=== PATIENT | male | born 1965 | race Caucasian/White ===

== ENCOUNTER 2020-01-17 17:52 | Emergency (ER) | payer OTHER, SELFPAY ==
--- NOTE | 2020-01-17 17:50 | ECG_ITS ---
APPROVED REPORT Exam: Resting ECG HR:75 bpm ECG Measurements Heart Rate 75 AXES FL 200 P 53 QRSd 86 QRS 14 QT 392 T 45 QTc 437 <Conclusion> Normal sinus rhythm Normal ECG Electronically signed by : Ramo Garcia, 01/19/2020 06:34:42
[2020-01-17 17:53] VITALS: BP 157/94; PULSE 77; RESP 22; TEMP 36.7; O2SAT 97; BMI 34.5
--- NOTE | 2020-01-17 18:00 | XR_ITS ---
PROCEDURE: XR CHEST PORTABLE CLINICAL HISTORY: chest pain Chest pressure and shortness of breath COMPARISON: CT ANGIO CHEST from 01/17/2020 FINDINGS: The cardiomediastinal silhouette and pulmonary vascularity are within normal limits. There is increased density in the right lung base which may be related to an area of atelectasis or infiltrate versus pericardial fat pad. The remaining lungs are clear. Sclerotic foci of the right humerus and scapula which may be due to bone islands. IMPRESSION: Possible right basilar infiltrate versus overlying fat pad. Dictated by: Mj Alex MD 01/18/2020 06:03 Electronically signed by Mj Alex MD in [facility] 01/18/2020 06:03
--- NOTE | 2020-01-17 18:03 | HMH.EDGENADL ---
ED Disposition Clinical Impression: Shortness of breath Disposition: Home, Self-Care Condition on Discharge: Good Instructions: DI for Shortness of Breath Additional Instructions: Follow-up with your primary care doctor, call tomorrow morning Additional instructions for SHORTNESS OF BREATH: See your physician as soon as possible for further evaluation. Return immediately if worsening shortness of breath or if vomiting, chest pain, fever, coughing of blood, or passing out. Referrals: Radames Mcgarry [Primary Care Provider] - - Critical Care Critical Care Time: No Attestation: On , the high probability of a clinically significant, sudden or life threatening deterioration of the following system(s) required my full and direct attention, intervention and personal management. The time I documented below is in addition to time spent performing reported procedures but includes the following listed in this critical care notation. Medical Decision Making - Ellis Inquiry Pt receiving controlled substance: No Vital Signs: 01/17/20 17:53 01/17/20 18:20 Temperature 98.1 F Temperature Source Oral Pulse Rate [Left Radial] 77 75 Respiratory Rate 22 Blood Pressure [Right Radial Artery] 157/94 H 149/83 H Blood Pressure Mean [Right Radial Artery] 115 105 Blood Pressure Source [Right Radial Artery] Automatic Cuff Blood Pressure Position [Right Radial Artery] Sitting Sitting 02 Sat by Pulse Oximetry 97 94 L Oxygen Delivery Method Room Air - Lab Data Lab Results 01/17/20 17:55: WBC 8.0, RBC 5.49, Hgb 14.7, Hct 44.5, MCV 81.2, MCH 26.8 L, MCHC 33.1, RDW 13.9, Plt Count 266, MPV 8.6, Neut % (Auto) 45.7, Lymph % (Auto) 47.1, [place] % (Auto) 4.2, Eos % (Auto) 2.3, Baso % (Auto) 0.7, Neut # (Auto) 3.6, Lymph # (Auto) 3.8, [place] # (Auto) 0.3, Eos # (Auto) 0.2, Baso # (Auto) 0.1 01/17/20 17:55: Sodium 137, Potassium 3.9, Chloride 105, Carbon Dioxide 25, Anion Gap 10.9, BUN 12, Creatinine 1.10, Estimated Creat Clear 104, Estimated GFR 69, Est GFR ( Amer) 84, Glucose 123 H, Calcium 9.3, Total Bilirubin 0.5, Direct Bilirubin 0.0, Conjugated Bilirubin 0.0, Indirect Bilirubin 0.5, Unconjugated Bilirubin 0.5, AST 32, ALT 36, Alkaline Phosphatase 58, Troponin I < 0.01, Total Protein 6.8, Albumin 4.3 01/17/20 17:55: D-Dimer 104 01/17/20 17:55: NT-Pro-B Natriuret Pep 25.3 01/17/20 19:32: Urine Color Yellow, Urine Appearance Clear, Urine pH 7.0, Ur Specific [place] 1.010, Urine Protein Negative, Urine Glucose (UA) Negative, Urine Ketones Negative, Urine Blood Negative, Urine Nitrate Negative, Urine Bilirubin Negative, Urine Urobilinogen 0.2, Ur Leukocyte Esterase Negative Result diagrams: 01/17/20 17:55 01/17/20 17:55 Orders (Tests/Meds): ED MEDICATIONS Discontinued Medications Generic Name Dose Route Start Last Admin Trade Name Freq PRN Reason Stop Dose Admin Aspirin 324 mg 01/17/20 18:01 01/17/20 18:14 Aspirin 81mg Chewable Tablet PO 01/17/20 18:02 324 mg ONCE ONE Administration Ioversol 70 ml 01/17/20 19:52 01/17/20 19:54 Rad-Optiray 350 100ml Vial IV 01/17/20 19:53 70 ml ONCE ONE Administration Protocol Sodium Chloride 10 ml 01/17/20 19:52 01/17/20 19:54 Rad-Saline Flush 10ml Syringe IV 01/17/20 19:53 10 ml ONCE ONE Administration Sodium Chloride 50 ml 01/17/20 19:52 01/17/20 19:54 Rad-Ns 50ml Vial IV 01/17/20 19:53 50 ml ONCE ONE Administration ORDERS Category Date Time Status CTA Chest [CT angio chest] Stat Cat Scan 01/17/20 18:49 Taken XR chest portable Stat Exams 01/17/20 18:00 Taken Troponin I Q3H Lab 01/17/20 21:00 Ordered Troponin I Q3H Lab 01/18/20 00:00 Ordered UA [Urinalysis and Microscopic] Stat Lab 01/17/20 19:32 Results - Radiology Data #1 Image(s): Chest Image Reviewed: Yes I reviewed the patient's radiology image Haziness at the right cardiophrenic angle, questionable fat pad. No effusions seen. Heart size daniel
[2020-01-17 18:08] LABS: Basophils # 0.1 K/mm3 (0-0.2); Basophils % 0.7 % (0.1-2.0); Eosinophils # 0.2 K/mm3 (0.0-0.4); Eosinophils % 2.3 % (0.1-12.0); Hematocrit 44.5 % (42.0-52.0); Hemoglobin 14.7 g/dL (14.1-18.0); Lymphocytes # 3.8 K/mm3 (0.7-4.5); Lymphocytes % 47.1 % (10-50); Mean Corpuscular HGB Conc 33.1 g/dL (31.8-35.4); Mean Corpuscular Hemoglobin 26.8 pg (27.0-31.2); Mean Corpuscular Volume 81.2 fl (80-94); Mean Platelet Volume 8.6 fl (7.4-10.4); Monocytes # 0.3 K/mm3 (0.1-1.0); Monocytes % 4.2 % (1.7-9.3); Neutrophils # 3.6 K/mm3 (1.8-7.8); Neutrophils % 45.7 % (37.0-80.0); Platelet Count 266 K/mm3 (142-424); Red Blood Count 5.49 M/mm3 (4.60-6.20); Red Cell Distribution Width 13.9 % (11.5-17.5)
[2020-01-17 18:14] LABS: Chloride 105 mmol/L (98-107); Potassium 3.9 mmoL/L (3.5-5.1); Sodium 137 mmol/L (136-145)
[2020-01-17 18:17] LABS: Alanine Aminotransferase 36 U/L (12-78); Albumin Level 4.3 g/dl (3.5-5.0); Alkaline Phosphatase 58 U/L (38-126); Anion Gap 10.9 mEq/L (5-15); Aspartate Amino Transferase 32 U/L (17-59); Bilirubin,Indirect 0.5 mg/dL (0.0-0.9); Bilirubin,Total 0.5 mg/dl (0.2-1.3); Bilirubin,Unconjugated 0.5 mg/dL (0.0-1.1); Blood Urea Nitrogen 12 mg/dl (9-20); Calcium 9.3 mg/dl (8.4-10.2); Carbon Dioxide 25 mmol/L (22.0-30.0); Creatinine Clearance Estimated 104 mL/min (50-200); Estimated Glomerular Filt Rate 69 ml/min (>60); GFR (African American) 84 ML/MIN (>60); Glucose 123 mg/dl (74-100); Total Protein,Serum 6.8 g/dl (6.3-8.2)
[2020-01-17 18:20] VITALS: BP 149/83; PULSE 75; O2SAT 94
--- NOTE | 2020-01-17 18:30 | PC.NURSE ---
Rad at bedside
[2020-01-17 18:32] LABS: Troponin I < 0.01 ng/ml (0.00-0.034)
--- NOTE | 2020-01-17 18:49 | CT_ITS ---
PROCEDURE: CT ANGIO CHEST CLINCIAL INDICATION: soa Chest pressure, shortness of breath COMPARISON: No exams were available for comparison TECHNIQUE: IV Contrast: 70ML OPTIRAY 350 Axial images obtained with sagittal and coronal reformats. All CT scans at the facility use one or more dose reduction, viz: automated exposure control, ma/kV adjustment per patient size (including targeted exams where dose is matched to indication, i.e. head), or iterative reconstruction technique. FINDINGS: HEART AND MEDIASTINAL STRUCTURES: No evidence of pulmonary embolus, aortic aneurysm, or dissection LUNGS AND PLEURAL SPACES: Atelectatic changes are present in the lower lung zones BONY STRUCTURES: Degenerative changes thoracic spine UPPER ABDOMEN: Unremarkable. ADDITIONAL FINDINGS: No other significant abnormalities. IMPRESSION: No evidence pulmonary embolus Mild atelectatic changes Dictated by: Mj Alex MD 01/18/2020 08:58 Electronically signed by Mj Alex MD in [facility] 01/18/2020 08:58
[2020-01-17 18:54] LABS: NT Pro Brain Natriuretic Pep. 25.3 pg/mL (0-125)
[2020-01-17 19:11] LABS: D-Dimer 104 ng/mL (0-400)
--- NOTE | 2020-01-17 19:27 | PC.NURSE ---
patient up to bathroom
[2020-01-17 19:37] LABS: Microscopic, Urine URINE MICROSCOPIC (MICROSCOPIC)
[2020-01-17 19:46] LABS: Appearance,Urine CLEAR (Clear); Bilirubin,Urine Negative (Negative); Blood, Urine Negative (Negative); Color,Urine YELLOW (Yellow); Glucose,Urine (UA) Negative (Negative); Ketones,Urine Negative (Negative); Leukocyte Esterase,Urine Negative (Negative); Nitrate,Urine Negative (Negative); Protein,Urine Negative (Negative); Urobilinogen,Urine 0.2 EU/dl (0.2)
[2020-01-17 20:19] LABS: Bacteria,Urine Trace /lpf; Squamous Epithelial Cell,Urine Occasional #/hpf (0-5); WBC,Urine Occasional #/hpf (0-3)
[2020-01-17 21:02] VITALS: BP 135/70; PULSE 78; RESP 19; TEMP 36.7; O2SAT 98
== END 2020-01-17 21:05 | disposition home or self-care (01) ==
PROVIDERS: Emergency Provider Emergency Medicine; PCP Family Medicine
DX: R06.02 Shortness of breath (principal); R07.9 Chest pain, unspecified; J44.9 Chronic obstructive pulmonary disease, unspecified; F17.210 Nicotine dependence, cigarettes, uncomplicated
CPT/HCPCS: 71045; 71275; 80048; 80076; 81001; 83880; 84484; 85025; 85378; 93005; 96365; 99283; 99284; Q9967

== ENCOUNTER → 2020-02-16 06:06 | Outpatient (CLI) | payer OTHER, SELFPAY ==
--- NOTE | 2020-02-16 06:07 | CA_ITS ---
APPROVED REPORT EXAM: Comprehensive 2D, Doppler, and color-flow Echocardiogram Frame Builder: Letitia Rosas RDCS Ht: 5 ft 6 in Wt: 211lbs BSA: 2.05 BP: 148/89 mmHg Indications: CP SOA CAD 2D Dimensions LVOT 1.89 cm (M/F) 1.5-2.5 M-Mode Dimensions RVDd 2.94 cm (0.9-2.6) LVDd 5.24 cm (3.5-5.7) LVDs 3.80 cm (3.5-5.7) IVSd 1.08 cm (0.6-1.1) PWd 0.93 cm (0.6-1.1) EF (Teich) 53.00% FS 27.50% EDV (Teich) 131.80 mL ESV (Teich) 62.00 mL LV Diastology E/A Ratio 0.74 Mitral Valve MV A Velocity 65.00 (40-130 cm/s) Left Ventricle Left atrium is qualitatively mildly enlarged, left ventricle is normal size, left ventricle wall thickness is upper limit of the normal, there is preserved left ventricular systolic function, visually estimated ejection fraction 55% with no regional wall motion abnormality, grade 1 diastolic dysfunction seen without tissue Doppler evidence of raise left atrial pressure. Right Ventricle Right atrium and right ventricle are mildly enlarged with normal contractility. Aortic Valve Aortic valve is minimally thickened and fibrosed, there is no aortic stenosis or aortic insufficiency. Mitral Valve Mitral valve is grossly normal, there is mild mitral regurgitation. Tricuspid Valve Tricuspid valve is grossly normal, there is mild tricuspid regurgitation, tricuspid regurgitation jet velocity is inadequate for calculation of the right ventricular systolic pressure. Pulmonic Valve Pulmonic valve is poorly visualized. Great Vessels Aortic root is normal size. Pericardium No significant pericardial effusion noted. Conclusion 1. Mild biatrial enlargement, normal left ventricular size, visually estimated ejection fraction 55% with no regional wall motion abnormality, grade 1 diastolic dysfunction seen without tissue Doppler evidence of raise left atrial pressure. 2. Mildly enlarged right ventricle with normal contractility. 3. Mild mitral and tricuspid regurgitation. 4. No significant pericardial effusion noted. Electronically signed by : Tristen Bennett, 02/16/2020 10:02:38
--- NOTE | 2020-02-16 06:07 | NM_ITS ---
APPROVED REPORT Exam: Nuclear Stress Test Indication: C.P., SOB, HTN, TOB USE, FM HX., PALPITATIONS, FATIGUE Patient Location: Outpatient Stress Tech: Liliana Mcbride [place] Tech:Gabby Acuna ROBERTMauricio RT(R)(N) Ht: 5 ft 7 in Wt: 210 lbs HR: 65 bpm BP: 144/87 mmHg BSA: 2.07 m2 BMI: 32.8 History: C.P., SOB, HTN, TOB USE, FM HX., PALPITATIONS, FATIGUE Procedure: Patient received a 0.4 mg of intravenous Lexiscan, resting heart rate 65 bpm, resting blood pressure 144/87 mmHg, with Lexiscan maximum heart rate achived was 96 bpm which is Less than 85 % of the maximum predicted heart rate and blood pressure was 140/77 mmHg. With Lexiscan, patient denied any complaint of chest pain. Electrocardiogram Resting electrocardiogram showed sinus rhythm, with Lexiscan there is less than 1.[address] segment depression noted from baseline EKG. The EKG portion of the Lexiscan Myoview is nondiagnostic. Cardiac Stress and Resting SPECT Images: Cardiac Stress and Resting SPECT images were obtained using technetium 99m Myoview 31.9 mCi stress and 10.90 mCi at rest. Gated SPECT with analysis of segmental wall motion and calculation of the ejection fraction also done. Cardiac stress and resting SPECT images show uniform myocardial activity without segmental perfusion abnormality, computer derived ejection fraction is 63% with no regional wall motion abnormality, right ventricle is normal size and contractility. Conclusion: 1. The EKG portion of the Lexiscan Myoview is nondiagnostic. 2. No scintigraphic evidence of reversible ischemia seen, computer derived ejection fraction is 63% with no regional wall motion abnormality, right ventricle is normal size and contractility. 3. Normal Lexiscan Myoview study. Electronically signed by : Tristen Bennett, 02/16/2020 10:14:11
--- NOTE | 2020-02-16 06:07 | CA_ITS ---
APPROVED REPORT Exam: Pharmacologic Technologist: Marysol Collins, Ht: 5 ft 7 in Wt: 210 lbs BSA: 2.07 m2 HR: 65 bpm BP: 144/87 mmHg Medical History Medical History: HTN, Smoking Medications: Lisinopril,,,,, Omeprazole,,,,, Spiriva,,,,, Asa,,,,, Albuterol,,,,, MeLOXICAM,,,,, WELLBUTRIN,,,,, Cardiac Risk Factors: HTN, FHX of CAD, Smoking Stress Test Details Test: LEXISCAN HR Resting HR: 64 bpm Max Heart Rate (APMHR): 165 bpm Max HR Achieved: 98 bpm Target HR (85% APMHR): 140 bpm % of APMHR: 59 Recovery HR: 78 bpm BP Resting BP: 144.0/87.0 mmHg Max BP: 144.0/87.0 mmHg Recovery BP: 135.0/80.0 mmHg ECG Clinical Exercise duration: 04:42 min Highest Stage Achieved: Exercise capacity: 1.0 METs Stress ECG Conclusion With Lexiscan there is less than 1.[address] segment depression noted from the baseline EKG. Conclusions: The EKG portion of the Lexiscan Myoview is nondiagnostic. Electronically signed by : Tristen Bennett, 02/16/2020 10:05:39
--- NOTE | 2020-02-16 08:53 | HMH.ITSHM ---
Current Home Medications as stated by this patient Tani Alvarez or licensing representative. [] lisinopril omeprazole asa albuterol spiriva wellbutrin meloxicam
== END ==
PROVIDERS: PCP Family Medicine; Visit Provider Urology
DX: R07.9 Chest pain, unspecified (principal); R06.00 Dyspnea, unspecified; I25.10 Atherosclerotic heart disease of native coronary artery without angina pectoris
CPT/HCPCS: 78452; 93017; 93306; A9502; J2785

== ENCOUNTER 2020-02-27 08:31 | Day surgery (SDC) | payer OTHER, SELFPAY ==
[2020-02-27] VITALS (18 sets, daily range): BP systolic 107–167; BP diastolic 64–96; PULSE 56–70; RESP 16–20; TEMP 36.6; O2SAT 94–99; BMI 33.7
--- NOTE | 2020-02-27 09:00 | IR_ITS ---
APPROVED REPORT Patient Location: Outpatient Machine Stuffer: WILL Henderson RT (R) PROCEDURES Left heart catheterization Left ventriculogram Selective coronary angiogram INDICATION Abnormal Myoview, Angina pectoris Informed consent was obtained prior to the procedure. COMPLICATIONS None Estimated Blood Loss: Less than 10 ml TECHNIQUE One percent lidocaine used to anesthetize the right anterior aspect of the wrist. The right radial artery was accessed via the Seldinger technique. A 6 [place] sheath was placed in the right radial artery. 2.5 mg of verapamil, 800 mcg of nitroglycerin, 1mg Lidocaine and 5000 U Heparin were given through the arterial sheath. The trap catheter was also used to perform left heart catheterization, left ventriculogram and selective coronary angiogram. At the end of the procedure the sheath was removed good hemostasis was achieved using Traclet band, patient was transferred to the postop holding area in stable condition. ANGIOGRAPHIC RESULTS The left main artery Normal The left anterior descending artery Normal The circumflex artery Normal The right coronary artery Dominant normal The MARTINEZ ventriculogram reveals Normal 65% The left ventricular end-diastolic pressure 10 mmHg IMPRESSION Normal coronary arteries Normal ejection fraction Normal left ventricular end-diastolic pressure PLAN 1. Medical management Electronically signed by : Adam Ny, 02/27/2020 13:20:08
[2020-02-27 09:02] LABS: Basophils # 0.1 K/mm3 (0-0.2); Basophils % 1.2 % (0.1-2.0); Eosinophils # 0.2 K/mm3 (0.0-0.4); Hematocrit 48.2 % (42.0-52.0); Hemoglobin 16.5 g/dL (14.1-18.0); Lymphocytes # 3.7 K/mm3 (0.7-4.5); Lymphocytes % 45.9 % (10-50); Mean Corpuscular HGB Conc 34.2 g/dL (31.8-35.4); Mean Corpuscular Hemoglobin 28.7 pg (27.0-31.2); Mean Corpuscular Volume 84.1 fl (80-94); Mean Platelet Volume 8.8 fl (7.4-10.4); Monocytes # 0.4 K/mm3 (0.1-1.0); Monocytes % 4.4 % (1.7-9.3); Neutrophils # 3.7 K/mm3 (1.8-7.8); Neutrophils % 45.6 % (37.0-80.0); Platelet Count 246 K/mm3 (142-424); Red Blood Count 5.73 M/mm3 (4.60-6.20); Red Cell Distribution Width 13.6 % (11.5-17.5); White Blood Count 8.1 K/mm3 (4.8-10.8)
[2020-02-27 09:07] LABS: Chloride 105 mmol/L (98-107); Potassium 4.2 mmoL/L (3.5-5.1); Sodium 140 mmol/L (136-145)
[2020-02-27 09:10] LABS: Anion Gap 15.2 mEq/L (5-15); Blood Urea Nitrogen 9 mg/dl (9-20); Calcium 9.4 mg/dl (8.4-10.2); Carbon Dioxide 24 mmol/L (22.0-30.0); Creatinine Clearance Estimated 112 mL/min (50-200); Estimated Glomerular Filt Rate 78 ml/min (>60); GFR (African American) 94 ML/MIN (>60); Glucose 111 mg/dl (74-100)
== END 2020-02-27 15:43 | disposition home or self-care (01) ==
LOC: CATHLAB 08:34
PROVIDERS: PCP Family Medicine; Visit Provider Internal Medicine
DX: I25.118 Atherosclerotic heart disease of native coronary artery with other forms of angina pectoris (principal); J44.9 Chronic obstructive pulmonary disease, unspecified; I10 Essential (primary) hypertension; R94.31 Abnormal electrocardiogram [ECG] [EKG]; E78.5 Hyperlipidemia, unspecified; Z79.82 Long term (current) use of aspirin; Z79.51 Long term (current) use of inhaled steroids; Z79.899 Other long term (current) drug therapy; Z88.8 Allergy status to other drugs, medicaments and biological substances
CPT/HCPCS: 80048; 85025; 93458; 99152; C1725; C1769; J1644; Q9967

== ENCOUNTER 2020-04-16 11:34 | Inpatient (IN) | payer OTHER, SELFPAY ==
[2020-04-16] VITALS (8 sets, daily range): BP systolic 128–157; BP diastolic 68–99; PULSE 60–96; RESP 14–18; TEMP 36.4–38.4; O2SAT 94–100; BMI 33.5; BMI 34.0
--- NOTE | 2020-04-16 12:00 | CT_ITS ---
PROCEDURE: CT ABDOMEN PELVIS W CON CLINICAL INDICATION: abd pain Abdominal pain, low-grade fever, blood in stool COMPARISON: 03/17/2019 TECHNIQUE: IV Contrast: 75ML OPTIRAY 350 Oral Contrast None Axial images obtained with sagittal and coronal reformats. All CT scans at the facility use one or more dose reduction, viz: automated exposure control, ma/kV adjustment per patient size (including targeted exams where dose is matched to indication, i.e. head), or iterative reconstruction technique. FINDINGS: There is diffuse fatty liver infiltration. There has been a prior cholecystectomy. The spleen, adrenal glands, pancreas, and kidneys have an unremarkable appearance other than a small right renal cyst at approximately 13 mm. No renal or ureteral calculi. No hydronephrosis No intestinal obstruction or free air. The bowel gas pattern is nonspecific with fluid-filled loops of small and large bowel which are nondistended. There is mild thickening of the descending colon with some minimal stranding of the pericolic fat also with some mild thickening of the sigmoid colon. There are scattered colonic diverticula but no evidence of diverticulitis. There has been a prior appendectomy. There is a tiny umbilical hernia which contains fat. There are mild degenerative changes in the spine IMPRESSION: 1. There is thickening of the descending and sigmoid colon with minimal stranding of the pericolic fat consistent with colitis. There is diverticulosis but no evidence of diverticulitis 2. There are some nondistended small bowel loops with a few air-fluid levels which may be seen with enteritis. 3. Fatty liver Dictated b Mj Alex MD 04/16/2020 14:08 Mj Alex MD in [facility] 04/16/2020 14:08
--- NOTE | 2020-04-16 12:00 | CT_ITS ---
PROCEDURE: CT CHEST W CON CLINCAL INDICATION: abd pain COMPARISON: CT CT ANGIO CHEST from 01/17/[address] ABDOMEN PELVIS W CON from 04/16/2020 TECHNIQUE: IV Contrast: 75ml Optiray 350 Axial images obtained with sagittal and coronal reformats. All CT scans at the facility use one or more dose reduction, viz: automated exposure control, ma/kV adjustment per patient size (including targeted exams where dose is matched to indication, i.e. head), or iterative reconstruction technique. FINDINGS: HEART AND MEDIASTINAL STRUCTURES: Unremarkable. LUNGS AND PLEURAL SPACES: Unremarkable. BONY STRUCTURES: No acute bony abnormalities apparent. UPPER ABDOMEN: Unremarkable. ADDITIONAL FINDINGS: No other significant abnormalities. IMPRESSION: Dictated b Mj Alex MD 04/16/2020 13:18 Mj Alex MD in [facility] 04/16/2020 13:18
[2020-04-16 12:23] LABS: Basophils % 0.3 % (0.1-2.0); Eosinophils # 0.2 K/mm3 (0.0-0.4); Eosinophils % 1.6 % (0.1-12.0); Hematocrit 48.6 % (42.0-52.0); Hemoglobin 16.7 g/dL (14.1-18.0); Lymphocytes # 4.2 K/mm3 (0.7-4.5); Lymphocytes % 36.6 % (10-50); Mean Corpuscular HGB Conc 34.4 g/dL (31.8-35.4); Mean Corpuscular Hemoglobin 29.1 pg (27.0-31.2); Mean Corpuscular Volume 84.7 fl (80-94); Mean Platelet Volume 8.2 fl (7.4-10.4); Monocytes # 0.5 K/mm3 (0.1-1.0); Monocytes % 4.1 % (1.7-9.3); Neutrophils # 6.6 K/mm3 (1.8-7.8); Neutrophils % 57.4 % (37.0-80.0); Platelet Count 259 K/mm3 (142-424); Red Blood Count 5.73 M/mm3 (4.60-6.20); Red Cell Distribution Width 13.4 % (11.5-17.5); White Blood Count 11.5 K/mm3 (4.8-10.8)
[2020-04-16 12:27] LABS: Chloride 104 mmol/L (98-107); Sodium 138 mmol/L (136-145)
[2020-04-16 12:28] LABS: Potassium 3.7 mmoL/L (3.5-5.1)
[2020-04-16 12:30] LABS: Alanine Aminotransferase 48 U/L (12-78); Alkaline Phosphatase 70 U/L (38-126); Amylase 62 U/L (30-110); Anion Gap 11.7 mEq/L (5-15); Aspartate Amino Transferase 35 U/L (17-59); Bilirubin,Total 0.7 mg/dl (0.2-1.3); Blood Urea Nitrogen 18 mg/dl (9-20); Carbon Dioxide 26 mmol/L (22.0-30.0); Creatinine Clearance Estimated 101 mL/min (50-200); Estimated Glomerular Filt Rate 69 ml/min (>60); GFR (African American) 84 ML/MIN (>60); Glucose 120 mg/dl (74-100); Lipase 117 U/L (23-300)
[2020-04-16 12:31] LABS: Albumin Level 4.1 g/dl (3.5-5.0); Albumin/Globulin Ratio 1.6 (1.1-1.8); Globulin 2.5 g/dL (1.3-3.2); Total Protein,Serum 6.6 g/dl (6.3-8.2)
[2020-04-16 12:32] LABS: Lactic Acid 1.3 mmol/L (0.7-2.1)
[2020-04-16 12:35] LABS: Adenovirus,PCR Not Detected (NotDetected); Bordetella Pertussis Not Detected (NotDetected); Chlamydophila Pneumoniae, PCR Not Detected (NotDetected); Coronavirus 19, PCR Not Detected (NotDetected); Coronavirus 229E Not Detected (NotDetected); Coronavirus NL63 Not Detected (NotDetected); Coronavirus OC43 Not Detected (NotDetected); Coronovirus HKU1,PCR Not Detected (NotDetected); Human Metapneumovirus Not Detected (NotDetected); Influenza A, PCR Not Detected (NotDetected); Influenza AH1, 2009 Not Detected (NotDetected); Influenza AH1, PCR Not Detected (NotDetected); Influenza AH3,PCR Not Detected (NotDetected); Influenza B, PCR Not Detected (NotDetected); Mycoplasma Pneumoniae, PCR Not Detected (NotDetected); Parainfluenza 1, PCR Not Detected (NotDetected); Parainfluenza 2, PCR Not Detected (NotDetected); Parainfluenza 3, PCR Not Detected (NotDetected); Parainfluenza 4, PCR Not Detected (NotDetected); Respiratory Syncytial Virus Not Detected (NotDetected); Rhinovirus/Enterovirus Not Detected (NotDetected)
[2020-04-16 12:36] LABS: C-Reactive Protein 3.5 mg/L (0-4)
[2020-04-16 12:45] LABS: Erythrocyte Sedimentation Rate 4 mm/hr (0-20)
--- NOTE | 2020-04-16 12:50 | PC.NURSE ---
notified rad of CT
--- NOTE | 2020-04-16 12:53 | PC.NURSE ---
Pt going to CT
--- NOTE | 2020-04-16 13:09 | PC.NURSE ---
pt returned from CT
--- NOTE | 2020-04-16 14:01 | PC.NURSE ---
Called DR. Manley
[2020-04-16 14:10] LABS: Microscopic, Urine URINE MICROSCOPIC (MICROSCOPIC)
[2020-04-16 14:12] LABS: Adenovirus F 40/41, stool Not Detected (NotDetected); Astrovirus Not Detected (NotDetected); Campylobacter Not Detected (NotDetected); Clostridium Difficile A/B, PCR Not Detected (NotDetected); Cryptosporidium Not Detected (NotDetected); Cyclospora Cayetanesis Not Detected (NotDetected); Entamoeba histolytica Not Detected (NotDetected); Enteroaggregative E coli Not Detected (NotDetected); Enteropathogenic E coli Not Detected (NotDetected); Enterotoxigenic E coli Not Detected (NotDetected); Giardia lamblia Not Detected (NotDetected); Norovirus Not Detected (NotDetected); Plesimonas Shigalloides, PCR Not Detected (NotDetected); Rotavirus A Not Detected (NotDetected); Salmonella, PCR Not Detected (NotDetected); Sapovirus Not Detected (NotDetected); Shiga-like toxin E coli Not Detected (NotDetected); Shigella Enterovasive E coli Not Detected (NotDetected); Vibrio Cholerae Not Detected (NotDetected); Vibrio, PCR Not Detected (NotDetected); Yersinia Entercolitica, PCR Not Detected (NotDetected)
[2020-04-16 14:13] LABS: Appearance,Urine CLEAR (Clear); Bilirubin,Urine Negative (Negative); Blood, Urine Negative (Negative); Color,Urine YELLOW (Yellow); Glucose,Urine (UA) Negative (Negative); Ketones,Urine Negative (Negative); Leukocyte Esterase,Urine Negative (Negative); Nitrate,Urine Negative (Negative); Protein,Urine Negative (Negative); Specific Gravity, Urine <= 1.005 (1.005-1.030); Urobilinogen,Urine 0.2 EU/dl (0.2)
[2020-04-16 14:25] LABS: Occult Blood,Stool Positive (Negative)
[2020-04-16 14:27] LABS: RBC,Urine Occasional #/hpf (0-3); WBC,Urine Occasional #/hpf (0-3)
--- NOTE | 2020-04-16 15:17 | HMH.EDABDPAI ---
ED Disposition Clinical Impression: Diverticulitis, Blood in stool, jannet, Arthralgia, Colitis Disposition: Admitted as Observation Condition on Discharge: Good - Critical Care Critical Care Time: No Attestation: On 04/16/20, the high probability of a clinically significant, sudden or life threatening deterioration of the following system(s) required my full and direct attention, intervention and personal management. The time I documented below is in addition to time spent performing reported procedures but includes the following listed in this critical care notation. Medical Decision Making - Medical Records Medical records reviewed: Yes: I reviewed the patient's medical records. - Ellis Inquiry Pt receiving controlled substance: No Vital Signs: 04/16/20 11:50 04/16/20 12:52 04/16/20 14:04 Temperature 101.1 F H 98.9 F Temperature Source Oral Temporal Artery Scan Pulse Rate [Right] 69 87 60 Respiratory Rate 16 16 16 Blood Pressure [Right Arm] 134/70 157/97 H 146/69 H Blood Pressure Mean [Right Arm] 91 117 94 Blood Pressure Source [Right Arm] Automatic Cuff Automatic Cuff Automatic Cuff Blood Pressure Position [Right Arm] Sitting Sitting Sitting 02 Sat by Pulse Oximetry 100 98 100 Oxygen Delivery Method Room Air Room Air Room Air 04/16/20 14:30 Temperature Temperature Source Pulse Rate [Right] 68 Respiratory Rate 17 Blood Pressure [Right Arm] 157/99 H Blood Pressure Mean [Right Arm] 118 Blood Pressure Source [Right Arm] Blood Pressure Position [Right Arm] 02 Sat by Pulse Oximetry 94 L Oxygen Delivery Method - Lab Data Lab results reviewed: Yes: I reviewed the patient's lab results. Lab Results 04/16/20 11:55: WBC 11.5 H, RBC 5.73, Hgb 16.7, Hct 48.6, MCV 84.7, MCH 29.1, MCHC 34.4, RDW 13.4, Plt Count 259, MPV 8.2, Neut % (Auto) 57.4, Lymph % (Auto) 36.6, [place] % (Auto) 4.1, Eos % (Auto) 1.6, Baso % (Auto) 0.3, Neut # (Auto) 6.6, Lymph # (Auto) 4.2, [place] # (Auto) 0.5, Eos # (Auto) 0.2, Baso # (Auto) 0.0, ESR 4 04/16/20 11:55: Sodium 138, Potassium 3.7, Chloride 104, Carbon Dioxide 26, Anion Gap 11.7, BUN 18, Creatinine 1.10, Estimated Creat Clear 101, Estimated GFR 69, Est GFR ( Amer) 84, Glucose 120 H, Calcium 9.0, Total Bilirubin 0.7, AST 35, ALT 48, Alkaline Phosphatase 70, C-Reactive Protein 3.5, Total Protein 6.6, Albumin 4.1, Globulin 2.5, Albumin/Globulin Ratio 1.6, Amylase 62, Lipase 117 04/16/20 11:55: Lactate 1.3 04/16/20 12:34: Chlamy pneumoniae PCR Not detected, Adenovirus (PCR) Not detected, B. pertussis DNA (PCR) Not detected, Coronavirus OC43 (PCR) Not detected, Coronavirus HKU1 (PCR) Not detected, Coronavirus 229E (PCR) Not detected, COVID-19 PCR Not detected, Coronavirus NL63 (PCR) Not detected, Human Metapneumovir PCR Not detected, Influenza A (H1) PCR Not detected, Influ A (H1N1/09) PCR Not detected, Influenza A (H3) PCR Not detected, Influenza Type A (PCR) Not detected, Influenza Type B (PCR) Not detected, M. pneumoniae (PCR) Not detected, Parainfluenza 1 (PCR) Not detected, Parainfluenza 2 (PCR) Not detected, Parainfluenza 3 (PCR) Not detected, Parainfluenza 4 (PCR) Not detected, RSV (PCR) Not detected, Entero/Rhino (PCR) Not detected 04/16/20 14:07: Urine Color Yellow, Urine Appearance Clear, Urine pH 7.0, Ur Specific [place] <= 1.005, Urine Protein Negative, Urine Glucose (UA) Negative, Urine Ketones Negative, Urine Blood Negative, Urine Nitrate Negative, Urine Bilirubin Negative, Urine Urobilinogen 0.2, Ur Leukocyte Esterase Negative, Urine RBC Occasional, Urine WBC Occasional 04/16/20 14:07: Stool Occult Blood Positive A Result diagrams: 04/16/20 11:55 04/16/20 11:55 Orders (Tests/Meds): ED MEDICATIONS Generic Name Dose Route Start Last Admin Trade Name Freq PRN Reason Stop Dose Admin Sodium Chloride 10 ml 04/16/20 14:18 Sodium Chloride 0.9% 10ml Vial IV 05/16/20 14:17 NEEDED PRN dilute protonix Discontinued Medications Generic Name
--- NOTE | 2020-04-16 15:35 | HMH.PHAVTE ---
[facility] Pharmacy VTE Monitoring - Patient Demographics Admission date: 04/16/20 Report Date: 04/16/20 Time: 15:35 Allergies/Adverse Reactions: Patient Allergies benzonatate [From Tessalon Perles] Allergy (Verified 04/16/20 11:59) hydromorphone [From Dilaudid] Allergy (Verified 04/16/20 11:59) Height: 1.68 m Weight: 94.347 kg Patient Problems: Current Active Problems Diverticulitis (Acute) Blood in stool, jannet (Acute) Arthralgia (Acute) Colitis (Acute) - VTE Risk Labs: VTE Related Lab Results Hgb 16.7 g/dL (14.1-18.0) 04/16/20 11:55 Hct 48.6 % (42.0-52.0) 04/16/20 11:55 Plt Count 259 K/mm3 (142-424) 04/16/20 11:55 BUN 18 mg/dl (9-20) 04/16/20 11:55 Creatinine 1.10 mg/dl (0.66-1.25) 04/16/20 11:55 Estimated Creat Clear 101 mL/min (50-200) 04/16/20 11:55 - Prophylaxis VTE Prophylaxis Ordered?: Yes Types of VTE Prophylaxis: TEDS Knee High Location of Applied Device: Bilateral Lower Extremeties - VTE Diagnosis Confirmed Treatment or plan recommended: Continue Current Treatment
--- NOTE | 2020-04-16 16:23 | PC.NURSE ---
Pt arrived to the floor at 1612 via wheel chair
--- NOTE | 2020-04-16 16:55 | HMH.HP ---
*Admission Date: 04/16/20 *Chief complaint: Bloody stools, abdominal Pain *History of present illness: Mr Alvarez is a 54-year-old male with a history of COPD , Hypertension, arthritis, and GERD who presented to [facility] emergency department with generalized lower abdominal pain. He states the abdominal pain started couple days ago and progressively worsened. He states that he felt like his bowels should move but did not move initially; then about 1600 yesterday he had a large bowel movement followed by clumps of blood. The rectal bleeding with stool continued throughout the night. Because of the bleeding and ongoing abdominal pain he presented to the emergency department. He describes his abdominal pain as a colicky-like pain that comes and goes. He has also experienced general fatigue, fever, shakes, chills, arthralgias myalgias and body aches. Patient rates his pain 5 out of 10 and classifies it as colicky and sharp. He states that exacerbating factors include movement and alleviating factors include bowel movements and rest. He denies any shortness of breath, chest pain, cough, and other respiratory symptoms. He has had some nausea but has not vomited.. Notes that he had a colonoscopy about 2 to 3 years ago with polypectomies. At the time of this exam he is sitting in a chair by the window and appears comfortable. He continues to have some lower abdominal pains White blood cell count in the ER was 11,500. Lactate was 1.3. Stool was positive for blood. CT of the abdomen revealed thickening of the descending and sigmoid colon with minimal stranding of the pericolic fat consistent with colitis. Also noted was diverticulosis but no evidence of diverticulitis. There was also some nondistended small bowel loops with a few air-fluid levels which may also be seen with enteritis. Also noted was a fatty liver. CT of the chest was unremarkable. Patient did have a temperature of 101.1. He was given Tylenol and 2 L of IV fluids. He had morphine for pain and was also given Zofran and Protonix. Diarrhea panel was noted to be negative. COVID 19 was negative as well. [facility] History Medical History: Reports:: Chronic Obstructive Pulmonary Disease (COPD), Gastroesophageal Reflux Disease(GERD), Hypertension Denies:: Cancer, Diabetes Mellitus Type 1, Diabetes Mellitus Type 2, Internal Pacemaker, Seizures *Have you ever received a pneumonia vaccine?: Yes *Have you received a flu vaccine this season?: Yes Other Medical History: Reports: Arthritis Laterality Cases: Right: Carpal Tunnel Release Other Surgeries: Yes: Appendectomy, Cardiac Catheterization, Cholecystectomy, Other (HEMROIDECTOMY). No: Pacemaker - *Social History Smoking Status: Current every day smoker Tobacco Type: cigarettes # Packs/Day (cigarettes): 1 Alcohol Intake: never Substance Use Type: denies use *Occupational Status:: disabled Housing: house Household Members: spouse *Travel in the last 8 weeks: None Family Hx:: Cancer, Coronary Artery Disease, Diabetes, Heart Attack Review of Systems - Constitutional Reports chills, Reports fatigue, Reports fever(s), Reports lack of energy, Reports malaise - Eyes Denies change in vision - ENT Reports sore throat, Denies ear discharge, Denies ear pain - *Cardiovascular Denies chest pain, Denies shortness of breath, Denies irregular heart rhythm, Denies leg swelling - *Respiratory Reports cough (Chronic a.m. cough), Denies change in phlegm color, Denies chest congestion, Denies shortness of breath, Denies coughing up blood - *Gastrointestinal Reports abdominal pain, Reports change in bowel habits, Reports change in stools, Reports constipation, Reports cramping, Reports heartburn, Reports bright, red blood in stools, Reports nausea, Denies belching, Denies bloating, Denies excessive passing of gas, Denies vomiting blood, Denies vomiting - *Genitourinary Denies difficulty urinating - *Musculoskeletal Reports joint
--- NOTE | 2020-04-16 17:36 | PC.NURSE ---
notified of consult on pt.
--- NOTE | 2020-04-16 18:58 | HMH.GSCON ---
*Admission Date: 04/16/20 *Reason for consult:: Blood per rectum/colitis *History of present illness: This is a 54-year-old gentleman seen in consultation from the service of Dr. Manley for evaluation regarding colitis/blood per rectum. A truncated HPI from his admission H&P is forwarded below: ...54-year-old male with a history of COPD , Hypertension, arthritis, and GERD who presented to [facility] emergency department with generalized lower abdominal pain. He states the abdominal pain started couple days ago and progressively worsened. He states that he felt like his bowels should move but did not move initially; then about 1600 yesterday he had a large bowel movement followed by clumps of blood. The rectal bleeding with stool continued throughout the night. Because of the bleeding and ongoing abdominal pain he presented to the emergency department. He describes his abdominal pain as a colicky-like pain that comes and goes. He has also experienced general fatigue, fever, shakes, chills, arthralgias myalgias and body aches. ...Notes that he had a colonoscopy about 2 to 3 years ago with polypectomies. At the time of this exam he is sitting in a chair by the window and appears comfortable. He continues to have some lower abdominal pains White blood cell count in the ER was 11,500. Lactate was 1.3. Stool was positive for blood. CT of the abdomen revealed thickening of the descending and sigmoid colon with minimal stranding of the pericolic fat consistent with colitis. Also noted was diverticulosis but no evidence of diverticulitis. There was also some nondistended small bowel loops with a few air-fluid levels which may also be seen with enteritis. NOTE: Upon further questioning the patient states that he is unsure with regard to timing of his last colonoscopy and that is likely at least 3 or 4 years ago but may be more . He also describes very long-term abdominal pain that apparently never got better after gallbladder surgery . With regard to location he describes what seems to be somewhat generalized abdominal pain. Again, he states that this has gone on for many years . He generally has what he describes as small bowel movements . Although he has noticed no significant changes over the past few months he does describe incomplete evacuation and occasional thin stool . Review of Systems - Constitutional Denies chills - Eyes Denies change in vision - ENT Denies hoarseness - *Cardiovascular Denies chest pain - *Respiratory Denies cough - *Gastrointestinal Reports abdominal pain - *Genitourinary Denies blood in urine - *Musculoskeletal Denies deformity - Integumentary/Breasts Denies new lesions - *Neurologic Reports headache(s), Denies abnormal walking, Denies dizziness, Denies frequent falls, Denies seizure-like activity - Psychiatric Denies anxiety - Endocrine Denies cold intolerance - Hematologic/Lymphatic Denies easy bleeding - Allergic/Immunologic Denies wheezing [facility] History Medical History: Reports:: Chronic Obstructive Pulmonary Disease (COPD), Gastroesophageal Reflux Disease(GERD), Hypertension Denies:: Cancer, Diabetes Mellitus Type 1, Diabetes Mellitus Type 2, Internal Pacemaker, Seizures *Have you ever received a pneumonia vaccine?: Yes *Have you received a flu vaccine this season?: Yes Other Medical History: Reports: Arthritis Laterality Cases: Right: Carpal Tunnel Release Other Surgeries: Yes: Appendectomy, Cardiac Catheterization, Cholecystectomy, Other (HEMROIDECTOMY). No: Pacemaker - *Social History Smoking Status: Current every day smoker Tobacco Type: cigarettes # Packs/Day (cigarettes): 1 Alcohol Intake: never Substance Use Type: denies use *Occupational Status:: disabled Housing: house Household Members: spouse *Travel in the last 8 weeks: None Family Hx:: Cancer, Coronary Artery Disease, Diabetes, Heart Attack Meds Home Medications Medic
--- NOTE | 2020-04-16 19:40 | PC.NURSE ---
Pt is alert and oriented and able to make needs known. RR even and unlabored. Has had no c/o since coming to floor. Pt is a new admit this shift. CB in reach. Tolerated supper well. NAD. at bedside. VSS
--- NOTE | 2020-04-16 20:59 | PC.NURSE ---
Pt had 1 loose BM. No blood noted at this time.
[2020-04-17 03:38] VITALS: BP 110/74; PULSE 61; RESP 14; O2SAT 96
[2020-04-17 04:00] VITALS: TEMP 36.8
--- NOTE | 2020-04-17 04:58 | PC.NURSE ---
Approximately 0330 pt c/o the air being heavy . Pt denies any pain, dizziness, N/V, diaphoresis, or visual changes. Vitals obtained and WDL. 1LNC applied for comfort. Pt stated this was not something new and at times would wear a CPAP his uses. Pt reassessed after 30min and stated he was fine , O2 sat of 98% on 1LNC. Will continue to monitor.
[2020-04-17 05:00] VITALS: BMI 33.7
[2020-04-17 06:11] LABS: Basophils % 0.2 % (0.1-2.0); Eosinophils # 0.4 K/mm3 (0.0-0.4); Eosinophils % 3.7 % (0.1-12.0); Hematocrit 41.7 % (42.0-52.0); Lymphocytes # 4.4 K/mm3 (0.7-4.5); Lymphocytes % 40.2 % (10-50); Mean Corpuscular HGB Conc 34.6 g/dL (31.8-35.4); Mean Corpuscular Hemoglobin 28.8 pg (27.0-31.2); Mean Corpuscular Volume 83.1 fl (80-94); Mean Platelet Volume 8.2 fl (7.4-10.4); Monocytes # 0.5 K/mm3 (0.1-1.0); Monocytes % 4.3 % (1.7-9.3); Neutrophils # 5.6 K/mm3 (1.8-7.8); Neutrophils % 51.4 % (37.0-80.0); Platelet Count 224 K/mm3 (142-424); Red Blood Count 5.02 M/mm3 (4.60-6.20); Red Cell Distribution Width 13.6 % (11.5-17.5); White Blood Count 10.9 K/mm3 (4.8-10.8)
[2020-04-17 06:12] LABS: Chloride 109 mmol/L (98-107); Sodium 139 mmol/L (136-145)
[2020-04-17 06:15] LABS: Alanine Aminotransferase 35 U/L (12-78); Albumin Level 3.2 g/dl (3.5-5.0); Albumin/Globulin Ratio 1.3 (1.1-1.8); Alkaline Phosphatase 54 U/L (38-126); Aspartate Amino Transferase 23 U/L (17-59); Bilirubin,Total 0.5 mg/dl (0.2-1.3); Blood Urea Nitrogen 14 mg/dl (9-20); Calcium 8.6 mg/dl (8.4-10.2); Carbon Dioxide 25 mmol/L (22.0-30.0); Creatinine Clearance Estimated 113 mL/min (50-200); Estimated Glomerular Filt Rate 78 ml/min (>60); GFR (African American) 94 ML/MIN (>60); Globulin 2.4 g/dL (1.3-3.2); Glucose 103 mg/dl (74-100); Total Protein,Serum 5.6 g/dl (6.3-8.2)
[2020-04-17 07:06] LABS: Hemoglobin 14.5 g/dL (14.1-18.0)
--- NOTE | 2020-04-17 07:06 | HMH.GSPN ---
Subjective Narrative: The patient is currently resting. Per his , he had a okay night . She states that he has continued to have less pain. Exam Vital signs and Labs for Last 24 Hours: Temp Pulse Resp BP Pulse Ox 98.3 F 61 14 110/74 96 04/17/20 04:00 04/17/20 03:38 04/17/20 03:38 04/17/20 03:38 04/17/20 03:38 Laboratory Results - last 24 hr 04/16/20 11:55: WBC 11.5 H, RBC 5.73, Hgb 16.7, Hct 48.6, MCV 84.7, MCH 29.1, MCHC 34.4, RDW 13.4, Plt Count 259, MPV 8.2, Neut % (Auto) 57.4, Lymph % (Auto) 36.6, [place] % (Auto) 4.1, Eos % (Auto) 1.6, Baso % (Auto) 0.3, Neut # (Auto) 6.6, Lymph # (Auto) 4.2, [place] # (Auto) 0.5, Eos # (Auto) 0.2, Baso # (Auto) 0.0, ESR 4 04/16/20 11:55: Sodium 138, Potassium 3.7, Chloride 104, Carbon Dioxide 26, Anion Gap 11.7, BUN 18, Creatinine 1.10, Estimated Creat Clear 101, Estimated GFR 69, Est GFR ( Amer) 84, Glucose 120 H, Calcium 9.0, Total Bilirubin 0.7, AST 35, ALT 48, Alkaline Phosphatase 70, C-Reactive Protein 3.5, Total Protein 6.6, Albumin 4.1, Globulin 2.5, Albumin/Globulin Ratio 1.6, Amylase 62, Lipase 117 04/16/20 11:55: Lactate 1.3 04/16/20 12:34: Chlamy pneumoniae PCR Not detected, Adenovirus (PCR) Not detected, B. pertussis DNA (PCR) Not detected, Coronavirus OC43 (PCR) Not detected, Coronavirus HKU1 (PCR) Not detected, Coronavirus 229E (PCR) Not detected, COVID-19 PCR Not detected, Coronavirus NL63 (PCR) Not detected, Human Metapneumovir PCR Not detected, Influenza A (H1) PCR Not detected, Influ A (H1N1/09) PCR Not detected, Influenza A (H3) PCR Not detected, Influenza Type A (PCR) Not detected, Influenza Type B (PCR) Not detected, M. pneumoniae (PCR) Not detected, Parainfluenza 1 (PCR) Not detected, Parainfluenza 2 (PCR) Not detected, Parainfluenza 3 (PCR) Not detected, Parainfluenza 4 (PCR) Not detected, RSV (PCR) Not detected, Entero/Rhino (PCR) Not detected 04/16/20 14:07: Urine Color Yellow, Urine Appearance Clear, Urine pH 7.0, Ur Specific [place] <= 1.005, Urine Protein Negative, Urine Glucose (UA) Negative, Urine Ketones Negative, Urine Blood Negative, Urine Nitrate Negative, Urine Bilirubin Negative, Urine Urobilinogen 0.2, Ur Leukocyte Esterase Negative, Urine RBC Occasional, Urine WBC Occasional 04/16/20 14:07: Stl Aeromonas (PCR) Not detected, Stl C. cayetanensis PCR Not detected, Stool Rotavirus (PCR) Not detected, Stl Adenov F 40/41 PCR Not detected, Stool Astrovirus (PCR) Not detected, Stool Campylobacter PCR Not detected, Stl C.difficile Tox PCR Not detected, Stool Cryptosporidium PCR Not detected, Stl E.coli Shiga Tox PCR Not detected, Stool E coli O157 PCR Not detected, Stl Enterotoxigenic E PCR Not detected, Stool EPEC (PCR) Not detected, Stool EAEC (PCR) Not detected, Stl E. histolytica PCR Not detected, Stool Giardia Lamblia PCR Not detected, Stool Salmonella PCR Not detected, Stool Sapovirus (PCR) Not detected, Stl P. shigelloides PCR Not detected, Stl Shigella/EIEC PCR Not detected, St Y.enterocolitica PCR Not detected, Stool Vibrio (PCR) Not detected, Stl Vibrio cholerae PCR Not detected, Stl Norovirus GI/GII PCR Not detected 04/16/20 14:07: Stool Occult Blood Positive A 04/17/20 06:00: WBC 10.9 H, RBC 5.02, Hct 41.7 L, MCV 83.1, MCH 28.8, MCHC 34.6, RDW 13.6, Plt Count 224, MPV 8.2, Neut % (Auto) 51.4, Lymph % (Auto) 40.2, [place] % (Auto) 4.3, Eos % (Auto) 3.7, Baso % (Auto) 0.2, Neut # (Auto) 5.6, Lymph # (Auto) 4.4, [place] # (Auto) 0.5, Eos # (Auto) 0.4, Baso # (Auto) 0.0 04/17/20 06:00: Sodium 139, Potassium 4.0, Chloride 109 H, Carbon Dioxide 25, Anion Gap 9.0, BUN 14, Creatinine 1.00, Estimated Creat Clear 113, Estimated GFR 78, Est GFR ( Amer) 94, Glucose 103 H, Calcium 8.6, Total Bilirubin 0.5, AST 23 D, ALT 35 D, Alkaline Phosphatase 54, Total Protein 5.6 L, Albumin 3.2 L D, Globulin 2.4, Albumin/Globulin Ratio 1.3 I & O for Last 24 hours: Intake & Output 04/14/20 04/15/20 04/16/20 04/17/20 11:59 11:59 11:59 11:59 Intake Total 300 / 300 Output Tot
[2020-04-17 08:00] VITALS: BP 141/68; PULSE 71; RESP 18; TEMP 36.7; O2SAT 96
--- NOTE | 2020-04-17 08:33 | HMH.ACPN2 ---
Internal Medicine - PN: Subj *Date: 04/17/20 *Time: 08:33 Interval history: Patient states he is much better. He denies any abdominal pain. He has had no further stools and no further rectal bleeding. He denies nausea and vomiting. He did have a regular diet last p.m. prior to being placed on liquids. He tolerated this well. He has had some shortness of breath. He denies chest pain. He is voiding QS. H&H are 14.5 and 41.7 this a.m. Blood chemistries are stable. He has been seen by surgery who feels that he has an enteritis and will need a GI follow-up as an outpatient. Exam Vital signs and Labs for Last 24 Hours: Temp Pulse Resp BP Pulse Ox 98.1 F 71 18 141/68 H 96 04/17/20 08:00 04/17/20 08:00 04/17/20 08:00 04/17/20 08:00 04/17/20 08:00 Laboratory Results - last 24 hr 04/16/20 11:55: WBC 11.5 H, RBC 5.73, Hgb 16.7, Hct 48.6, MCV 84.7, MCH 29.1, MCHC 34.4, RDW 13.4, Plt Count 259, MPV 8.2, Neut % (Auto) 57.4, Lymph % (Auto) 36.6, [place] % (Auto) 4.1, Eos % (Auto) 1.6, Baso % (Auto) 0.3, Neut # (Auto) 6.6, Lymph # (Auto) 4.2, [place] # (Auto) 0.5, Eos # (Auto) 0.2, Baso # (Auto) 0.0, ESR 4 04/16/20 11:55: Sodium 138, Potassium 3.7, Chloride 104, Carbon Dioxide 26, Anion Gap 11.7, BUN 18, Creatinine 1.10, Estimated Creat Clear 101, Estimated GFR 69, Est GFR ( Amer) 84, Glucose 120 H, Calcium 9.0, Total Bilirubin 0.7, AST 35, ALT 48, Alkaline Phosphatase 70, C-Reactive Protein 3.5, Total Protein 6.6, Albumin 4.1, Globulin 2.5, Albumin/Globulin Ratio 1.6, Amylase 62, Lipase 117 04/16/20 11:55: Lactate 1.3 04/16/20 12:34: Chlamy pneumoniae PCR Not detected, Adenovirus (PCR) Not detected, B. pertussis DNA (PCR) Not detected, Coronavirus OC43 (PCR) Not detected, Coronavirus HKU1 (PCR) Not detected, Coronavirus 229E (PCR) Not detected, COVID-19 PCR Not detected, Coronavirus NL63 (PCR) Not detected, Human Metapneumovir PCR Not detected, Influenza A (H1) PCR Not detected, Influ A (H1N1/09) PCR Not detected, Influenza A (H3) PCR Not detected, Influenza Type A (PCR) Not detected, Influenza Type B (PCR) Not detected, M. pneumoniae (PCR) Not detected, Parainfluenza 1 (PCR) Not detected, Parainfluenza 2 (PCR) Not detected, Parainfluenza 3 (PCR) Not detected, Parainfluenza 4 (PCR) Not detected, RSV (PCR) Not detected, Entero/Rhino (PCR) Not detected 04/16/20 14:07: Urine Color Yellow, Urine Appearance Clear, Urine pH 7.0, Ur Specific [place] <= 1.005, Urine Protein Negative, Urine Glucose (UA) Negative, Urine Ketones Negative, Urine Blood Negative, Urine Nitrate Negative, Urine Bilirubin Negative, Urine Urobilinogen 0.2, Ur Leukocyte Esterase Negative, Urine RBC Occasional, Urine WBC Occasional 04/16/20 14:07: Stl Aeromonas (PCR) Not detected, Stl C. cayetanensis PCR Not detected, Stool Rotavirus (PCR) Not detected, Stl Adenov F 40/41 PCR Not detected, Stool Astrovirus (PCR) Not detected, Stool Campylobacter PCR Not detected, Stl C.difficile Tox PCR Not detected, Stool Cryptosporidium PCR Not detected, Stl E.coli Shiga Tox PCR Not detected, Stool E coli O157 PCR Not detected, Stl Enterotoxigenic E PCR Not detected, Stool EPEC (PCR) Not detected, Stool EAEC (PCR) Not detected, Stl E. histolytica PCR Not detected, Stool Giardia Lamblia PCR Not detected, Stool Salmonella PCR Not detected, Stool Sapovirus (PCR) Not detected, Stl P. shigelloides PCR Not detected, Stl Shigella/EIEC PCR Not detected, St Y.enterocolitica PCR Not detected, Stool Vibrio (PCR) Not detected, Stl Vibrio cholerae PCR Not detected, Stl Norovirus GI/GII PCR Not detected 04/16/20 14:07: Stool Occult Blood Positive A 04/17/20 06:00: WBC 10.9 H, RBC 5.02, Hgb 14.5 D, Hct 41.7 L, MCV 83.1, MCH 28.8, MCHC 34.6, RDW 13.6, Plt Count 224, MPV 8.2, Neut % (Auto) 51.4, Lymph % (Auto) 40.2, [place] % (Auto) 4.3, Eos % (Auto) 3.7, Baso % (Auto) 0.2, Neut # (Auto) 5.6, Lymph # (Auto) 4.4, [place] # (Auto) 0.5, Eos # (Auto) 0.4, Baso # (Auto) 0.0 04/17/20 06:00: Sodium 139, Potassium 4.0, Chloride 109 H
--- NOTE | 2020-04-17 11:08 | PC.NURSE ---
4456 - DR THAPA CONTACTED ABOUT PT'S REQUEST TO LEAVE FLOOR. PT STATES HE DOES NOT WANT TO SMOKE, ONLY ANTSY AND WANTS TO GET SOME FRESH AIR. MD STATES PT IS ALLOWED TO LEAVE FLOOR. OFF UNIT CONSENT PAPER OBTAINED AND PLACED ON CHART. PT MADE AWARE OF HOSPITAL POLICY AND OF NO SMOKING FACILITY. PT VERBALIZED UNDERSTANDING. 1108 - PT LEAVING FLOOR W/ AT THIS TIME. IV SALINE LOCKED AND COVERED PER HOSPITAL POLICY.
--- NOTE | 2020-04-17 15:32 | HMH.PHAINT ---
MEDICATION RECONCILIATION COMPLETED ON PATIENT USING EXTERNAL FILL HISTORY FROM PHARMACY AND LIST FROM DR. HEATON'S OFFICE. -RAMONE AGUILARD
[2020-04-17 15:59] VITALS: BP 145/71; PULSE 79; RESP 19; TEMP 36.8; O2SAT 94
--- NOTE | 2020-04-17 17:42 | PC.NURSE ---
NO COMPLAINTS VOICED. AMBULATES INDEPENDENTLY W/O SAFETY CONCERNS, HAS AMBULATED OUTSIDE MULTIPLE TIMES SINCE SIGNING CONSENT EARLIER. TOLERATING BLAND DIET. BM REPORTED BY PT THIS SHIFT. CALL JERROD W/IN REACH.
[2020-04-17 20:00] VITALS: BP 150/78; PULSE 69; RESP 18; TEMP 36.8; O2SAT 93
[2020-04-18 04:00] VITALS: BP 133/83; PULSE 68; RESP 16; TEMP 36.8; O2SAT 97
[2020-04-18 05:00] VITALS: BMI 33.1
--- NOTE | 2020-04-18 06:35 | HMH.GSPN ---
Subjective Patient reports: no new complaints (He states that he hopes to go home today . He does continue to complain of tiredness .), feels better Exam Vital signs and Labs for Last 24 Hours: Temp Pulse Resp BP Pulse Ox 98.2 F 68 16 133/83 97 04/18/20 04:00 04/18/20 04:00 04/18/20 04:00 04/18/20 04:00 04/18/20 04:00 Laboratory Results - last 24 hr 04/17/20 06:00: Hgb 14.5 D I & O for Last 24 hours: Intake & Output 04/15/20 04/16/20 04/17/20 04/18/20 11:59 11:59 11:59 11:59 Intake Total 420 / 420 580 / 580 Output Total Balance 419 / 419 580 / 580 Weight 208 lb 209 lb 10.554 oz 206 lb 6 oz Microbiology Reports for the Last 24 Hours: Microbiology 04/16/20 11:55 Blood Blood Culture - Preliminary - Constitutional no acute distress - *Routine Respiratory Exam Absent: respiratory distress - *Routine Cardiovascular Exam Present: RRR Progress Note: A&P (1) Blood in stool, jannet Status: Acute Current Visit: Yes (2) Colitis Status: Acute Assessment and plan: Continuing to improve. Continued management as per primary service. Current Visit: Yes (3) Diverticulitis Status: Acute Current Visit: Yes (4) GERD (gastroesophageal reflux disease) Status: Chronic Current Visit: No (5) COPD (chronic obstructive pulmonary disease) Status: Chronic Current Visit: No (6) HLD (hyperlipidemia) Status: Chronic Current Visit: No (7) HTN (hypertension) Status: Chronic Current Visit: No (8) Abnormal bowel movement Status: Acute Assessment and plan: Gastroenterology consultation (likely as outpatient) pending. Current Visit: Yes
[2020-04-18 06:46] LABS: Chloride 110 mmol/L (98-107); Potassium 3.7 mmoL/L (3.5-5.1); Sodium 140 mmol/L (136-145)
[2020-04-18 06:49] LABS: Anion Gap 9.7 mEq/L (5-15); Blood Urea Nitrogen 11 mg/dl (9-20); Carbon Dioxide 24 mmol/L (22.0-30.0); Creatinine Clearance Estimated 111 mL/min (50-200); Estimated Glomerular Filt Rate 78 ml/min (>60); GFR (African American) 94 ML/MIN (>60)
[2020-04-18 06:50] LABS: Calcium 8.6 mg/dl (8.4-10.2); Glucose 104 mg/dl (74-100)
[2020-04-18 07:09] LABS: Basophils % 0.4 % (0.1-2.0); Eosinophils # 0.3 K/mm3 (0.0-0.4); Eosinophils % 2.9 % (0.1-12.0); Hematocrit 43.2 % (42.0-52.0); Hemoglobin 14.9 g/dL (14.1-18.0); Lymphocytes # 3.8 K/mm3 (0.7-4.5); Lymphocytes % 35.7 % (10-50); Mean Corpuscular HGB Conc 34.5 g/dL (31.8-35.4); Mean Corpuscular Hemoglobin 28.3 pg (27.0-31.2); Mean Corpuscular Volume 82.1 fl (80-94); Mean Platelet Volume 8.8 fl (7.4-10.4); Monocytes # 0.5 K/mm3 (0.1-1.0); Monocytes % 4.7 % (1.7-9.3); Neutrophils % 56.3 % (37.0-80.0); Platelet Count 224 K/mm3 (142-424); Red Blood Count 5.27 M/mm3 (4.60-6.20); Red Cell Distribution Width 13.5 % (11.5-17.5); White Blood Count 10.7 K/mm3 (4.8-10.8)
[2020-04-18 07:50] VITALS: BP 128/68; PULSE 64; RESP 17; TEMP 36.8; O2SAT 93
[2020-04-18 08:23] VITALS: PULSE 64; RESP 17; O2SAT 93
--- NOTE | 2020-04-18 11:51 | HMH.ACPN2 ---
Internal Medicine - PN: Subj *Date: 04/18/20 *Time: 11:51 Interval history: Patient is feeling much better today. He has minimal abdominal pain and that was able to tolerate breakfast. He slept well last night and is anxious for discharge today. Exam Vital signs and Labs for Last 24 Hours: Temp Pulse Resp BP Pulse Ox 98.3 F 64 17 128/68 93 L 04/18/20 07:50 04/18/20 08:23 04/18/20 08:23 04/18/20 07:50 04/18/20 08:23 Laboratory Results - last 24 hr 04/18/20 06:18: WBC 10.7, RBC 5.27, Hgb 14.9, Hct 43.2, MCV 82.1, MCH 28.3, MCHC 34.5, RDW 13.5, Plt Count 224, MPV 8.8, Neut % (Auto) 56.3, Lymph % (Auto) 35.7, [place] % (Auto) 4.7, Eos % (Auto) 2.9, Baso % (Auto) 0.4, Neut # (Auto) 6.0, Lymph # (Auto) 3.8, [place] # (Auto) 0.5, Eos # (Auto) 0.3, Baso # (Auto) 0.0 04/18/20 06:18: Sodium 140, Potassium 3.7, Chloride 110 H, Carbon Dioxide 24, Anion Gap 9.7, BUN 11, Creatinine 1.00, Estimated Creat Clear 111, Estimated GFR 78, Est GFR ( Amer) 94, Glucose 104 H, Calcium 8.6 I & O for Last 24 hours: Intake & Output 04/15/20 04/16/20 04/17/20 04/18/20 11:59 11:59 11:59 11:59 Intake Total 420 / 420 1300 / 1300 Output Total Balance 419 / 419 1300 / 1300 Weight 208 lb 209 lb 10.554 oz 206 lb 6 oz Microbiology Reports for the Last 24 Hours: Microbiology 04/16/20 11:55 Blood Blood Culture - Preliminary - Constitutional no acute distress - *Routine Respiratory Exam Present: CTA bilaterally - *Routine Cardiovascular Exam Present: RRR - *Routine Abdominal Exam Present: soft, normoactive bowel sounds, tenderness (mild diffuse tenderness) - *Routine Extremities Exam Absent: cyanosis, clubbing, edema - *Routine Skin Exam Present: warm. Absent: rash - *Routine Neurological Exam Present: alert, oriented X3 Assessment and Plan (1) Blood in stool, jannet Current visit: Yes Status: Acute Category: Medical Code(s): K92.1 - Melena (2) Colitis Current visit: Yes Status: Acute Category: Medical Code(s): K52.9 - Noninfective gastroenteritis and colitis, unspecified (3) Diverticulitis Current visit: Yes Status: Acute Category: Medical Code(s): K57.92 - Diverticulitis of intestine, part unspecified, without perforation or abscess without bleeding (4) GERD (gastroesophageal reflux disease) Current visit: No Status: Chronic Category: Medical Code(s): K21.9 - Gastro-esophageal reflux disease without esophagitis (5) COPD (chronic obstructive pulmonary disease) Current visit: No Status: Chronic Qualifiers: COPD type: unspecified COPD Qualified Code(s): J44.9 - Chronic obstructive pulmonary disease, unspecified Category: Medical Code(s): J44.9 - Chronic obstructive pulmonary disease, unspecified (6) HLD (hyperlipidemia) Current visit: No Status: Chronic Qualifiers: Hyperlipidemia type: other hyperlipidemia Qualified Code(s): E78.49 - Other hyperlipidemia Category: Medical Code(s): E78.5 - Hyperlipidemia, unspecified (7) HTN (hypertension) Current visit: No Status: Chronic Qualifiers: Hypertension type: essential hypertension Qualified Code(s): I10 - Essential (primary) hypertension Category: Medical Code(s): I10 - Essential (primary) hypertension (8) Abnormal bowel movement Current visit: Yes Status: Acute Category: Medical Code(s): R19.8 - Other specified symptoms and signs involving the digestive system and abdomen - Assessment and plan all Dx Assessment and Plan for all problems:: Patient stable to be discharged home today and will need an outpatient follow-up with GI.
--- NOTE | 2020-04-18 12:34 | HMH.PHAINT ---
DISCHARGE COUNSELING COMPLETED
--- NOTE | 2020-04-18 14:54 | HMH.DCSUM ---
General - General Admission date:: 04/16/20 Discharge date: 04/18/20 HPI HPI: Mr Alvarez is a 54-year-old male with a history of COPD , Hypertension, arthritis, and GERD who presented to [facility] emergency department with generalized lower abdominal pain. He states the abdominal pain started a couple days ago and progressively worsened. He states that he felt like his bowels should move but did not move initially; then about 1600 yesterday he had a large bowel movement followed by clumps of blood. The rectal bleeding with stool continued throughout the night. Because of the bleeding and ongoing abdominal pain he presented to the emergency department. He describes his abdominal pain as a colicky-like pain that comes and goes. He has also experienced general fatigue, fever, shakes, chills, arthralgias myalgias and body aches. Patient rates his pain 5 out of 10 and classifies it as colicky and sharp. He states that exacerbating factors include movement and alleviating factors include bowel movements and rest. He denies any shortness of breath, chest pain, cough, and other respiratory symptoms. He has had some nausea but has not vomited.. Notes that he had a colonoscopy about 2 to 3 years ago with polypectomies. At the time of this exam he is sitting in a chair by the window and appears comfortable. He continues to have some lower abdominal pains White blood cell count in the ER was 11,500. Lactate was 1.3. Stool was positive for blood. CT of the abdomen revealed thickening of the descending and sigmoid colon with minimal stranding of the pericolic fat consistent with colitis. Also noted was diverticulosis but no evidence of diverticulitis. There was also some nondistended small bowel loops with a few air-fluid levels which may also be seen with enteritis. Also noted was a fatty liver. CT of the chest was unremarkable. Patient did have a temperature of 101.1. He was given Tylenol and 2 L of IV fluids. He had morphine for pain and was also given Zofran and Protonix. Diarrhea panel was noted to be negative. COVID 19 was negative as well. Hospital Course Hospital Course: The patient was started on metronidazole and Levaquin and general surgery was consulted. His diet was changed to clear liquids. He was seen by Dr. Carr who felt the likely source of his pain and bleeding was his colitis. He recommended continuing medical management with serial abdominal exams and did not feel there was a need for urgent colonoscopy. He did feel the patient would need a colonoscopy in the near future as well as a GI consultation. The patient's pain improved. He had no further stools or rectal bleeding and he denied any nausea or vomiting. His diet was advanced and he tolerated this well. His H&H was stable. By 04/18/2020 he was feeling well and was ready for discharge. He was discharged home on oral antibiotics and an order was placed for GI outpatient follow-up. He will also be following up with his primary care physician. Objective Vital signs: Temp Pulse Resp BP Pulse Ox 98.3 F 64 17 128/68 93 L 04/18/20 07:50 04/18/20 08:23 04/18/20 08:23 04/18/20 07:50 04/18/20 08:23 Narrative: - Constitutional no acute distress Comments: Sitting comfortably in his chair in the room. - *Routine HEENT Exam Head: Present: normocephalic, atraumatic Eye: Present: PERRL. Absent: conjunctival icterus, scleral injection ENT: Present: mucous membranes moist, oropharynx clear, nares patent - *Routine Neck Exam Absent: carotid bruit, lymphadenopathy, thyromegaly - *Routine Respiratory Exam Present: CTA bilaterally (Anteriorly and posteriorly) - *Routine Cardiovascular Exam Present: RRR - *Routine Abdominal Exam Present: soft, normoactive bowel sounds, tenderness (In all lower quadrants). Absent: distended - *Routine Extremities Exam Absent: edema - *Routine Neurological Exam Present: alert, o
== END 2020-04-18 12:35 | disposition home or self-care (01) | DRG 392 ==
LOC: ER 14:58 → 2ND 15:22
PROVIDERS: Admitting Provider Family Medicine; Emergency Provider Family Medicine; PCP Family Medicine; Visit Provider Family Medicine
DX: K52.9 Noninfective gastroenteritis and colitis, unspecified (principal); K57.92 Diverticulitis of intestine, part unspecified, without perforation or abscess without bleeding; K21.9 Gastro-esophageal reflux disease without esophagitis; J44.9 Chronic obstructive pulmonary disease, unspecified; Z72.0 Tobacco use; I10 Essential (primary) hypertension; E78.5 Hyperlipidemia, unspecified; Z88.8 Allergy status to other drugs, medicaments and biological substances; Z79.52 Long term (current) use of systemic steroids; Z79.82 Long term (current) use of aspirin; Z79.899 Other long term (current) drug therapy
CPT/HCPCS: 36415; 71260; 74177; 80048; 80053; 81001; 82150; 82272; 83605; 83690; 85025; 85651; 86140; 87040; 87077; 87186; 87507; 87581; 87633; 87798; 94640; 96365; 96366; 96375; 99285; G0328; J1956; J2405; Q9967

== ENCOUNTER → 2020-06-10 08:43 | Outpatient (POV) | payer OTHER, SELFPAY ==
[2020-06-10 10:59] LABS: Basophils # 0.1 K/mm3 (0-0.2); Eosinophils # 0.2 K/mm3 (0.0-0.4); Eosinophils % 2.6 % (0.1-12.0); Hematocrit 49.6 % (42.0-52.0); Hemoglobin 16.5 g/dL (14.1-18.0); Lymphocytes # 3.8 K/mm3 (0.7-4.5); Lymphocytes % 47.7 % (10-50); Mean Corpuscular HGB Conc 33.3 g/dL (31.8-35.4); Mean Corpuscular Hemoglobin 28.4 pg (27.0-31.2); Mean Corpuscular Volume 85.2 fl (80-94); Mean Platelet Volume 8.2 fl (7.4-10.4); Monocytes # 0.4 K/mm3 (0.1-1.0); Monocytes % 4.7 % (1.7-9.3); Neutrophils # 3.5 K/mm3 (1.8-7.8); Neutrophils % 43.9 % (37.0-80.0); Platelet Count 269 K/mm3 (142-424); Red Blood Count 5.82 M/mm3 (4.60-6.20)
[2020-06-10 11:31] LABS: Erythrocyte Sedimentation Rate 3 mm/hr (0-20)
[2020-06-10 11:51] LABS: Chloride 105 mmol/L (98-107); Sodium 140 mmol/L (136-145)
[2020-06-10 11:52] LABS: Potassium 4.9 mmoL/L (3.5-5.1)
[2020-06-10 11:54] LABS: Alanine Aminotransferase 27 U/L (12-78); Albumin Level 4.5 g/dl (3.5-5.0); Albumin/Globulin Ratio 1.7 (1.1-1.8); Alkaline Phosphatase 69 U/L (38-126); Anion Gap 13.9 mEq/L (5-15); Aspartate Amino Transferase 31 U/L (17-59); Bilirubin,Total 0.5 mg/dl (0.2-1.3); Blood Urea Nitrogen 6 mg/dl (9-20); Carbon Dioxide 26 mmol/L (22.0-30.0); Estimated Glomerular Filt Rate 77 ml/min (>60); GFR (African American) 94 ML/MIN (>60); Globulin 2.7 g/dL (1.3-3.2); Total Protein,Serum 7.2 g/dl (6.3-8.2)
[2020-06-10 11:55] LABS: Glucose 105 mg/dl (74-100)
[2020-06-10 12:01] LABS: C-Reactive Protein 4.8 mg/L (0-4)
[2020-06-12 13:18] LABS: Deamidated Gliadin Abs, IgA 5 units (0-19); Deamidated Gliadin Abs, IgG 2 units (0-19); Endomysial IgA Antibody Negative (Negative); Tissue Transglutaminase IgA Ab <2 U/mL (0-3); Tissue Transglutaminase IgG Ab 12 U/mL (0-5)
[2020-06-12 13:19] LABS: Reticulin IgA Antibody Negative titer (Neg:<1:2.5)
[2020-06-13 15:24] LABS: Saccharomyces cerevisiae, IgA <20.0 Units (0.0-24.9); Saccharomyces cerevisiae, IgG 23.2 Units (0.0-24.9)
== END ==
PROVIDERS: Visit Provider Nurse Practitioner Family
DX: R19.4 Change in bowel habit (principal); R10.31 Right lower quadrant pain; R14.0 Abdominal distension (gaseous); K59.00 Constipation, unspecified; R19.7 Diarrhea, unspecified
CPT/HCPCS: 36415; 80053; 83516; 85025; 85651; 86140; 86255; 86256; 86671

== ENCOUNTER 2020-11-18 17:35 | Emergency (ER) | payer OTHER, SELFPAY ==
[2020-11-18] VITALS (10 sets, daily range): BP systolic 141–168; BP diastolic 82–100; PULSE 60–72; RESP 13–20; TEMP 36.6–36.7; O2SAT 94–100; BMI 32.3
--- NOTE | 2020-11-18 17:30 | ECG_ITS ---
APPROVED REPORT Exam: Resting ECG HR:70 bpm ECG Measurements Heart Rate 70 AXES NC 200 P 67 QRSd 98 QRS 20 QT 416 T 46 QTc 449 Conclusion Normal sinus rhythm Possible Left atrial enlargement Borderline ECG Electronically signed by : Ramo Garcia, 11/19/2020 19:37:03
--- NOTE | 2020-11-18 17:36 | XR_ITS ---
PROCEDURE: XR CHEST PORTABLE CLINICAL HISTORY: cp Left-sided chest pain COMPARISON: CR XR CHEST PORTABLE from 01/17/[address] CHEST W CON from 04/16/2020 FINDINGS: The cardiomediastinal silhouette and pulmonary vascularity are within normal limits. The lungs are clear without infiltrates, suspicious nodules, or pleural effusions. Minimal atelectatic or fibrotic changes in the right lower lung zone. IMPRESSION: Minimal atelectatic or fibrotic change right lower lung zone otherwise negative Dictated by: Mj Alex MD 11/18/2020 20:23 Mj Alex MD in [place] 11/18/2020 20:23
--- NOTE | 2020-11-18 17:36 | HMH.EDGENADL ---
ED Disposition Clinical Impression: Atypical chest pain Disposition: Home, Self-Care Condition on Discharge: Good Referrals: Radames Mcgarry [Primary Care Provider] - 3 days Adam Ny MD [Staff Physician] - 11/19/20 8:00 am Time of Disposition: 20:18 - Critical Care Critical Care Time: No Attestation: On , the high probability of a clinically significant, sudden or life threatening deterioration of the following system(s) required my full and direct attention, intervention and personal management. The time I documented below is in addition to time spent performing reported procedures but includes the following listed in this critical care notation. Medical Decision Making - Ellis Inquiry Pt receiving controlled substance: No Vital Signs: 11/18/20 17:35 11/18/20 17:50 11/18/20 18:00 Temperature 98.0 F Temperature Source Oral Pulse Rate 64 62 Pulse Rate [Right Radial] 66 Respiratory Rate 16 18 18 Blood Pressure Blood Pressure [Right Arm] 165/100 H Blood Pressure Mean Blood Pressure Mean [Right Arm] 121 Blood Pressure Source [Right Arm] Automatic Cuff Blood Pressure Position [Right Arm] Sitting 02 Sat by Pulse Oximetry 96 95 100 Oxygen Delivery Method Room Air 11/18/20 18:01 11/18/20 18:15 11/18/20 18:30 Temperature Temperature Source Pulse Rate 64 65 62 Pulse Rate [Right Radial] Respiratory Rate 14 19 13 Blood Pressure 143/83 H Blood Pressure [Right Arm] Blood Pressure Mean 105 Blood Pressure Mean [Right Arm] Blood Pressure Source [Right Arm] Blood Pressure Position [Right Arm] 02 Sat by Pulse Oximetry 96 95 Oxygen Delivery Method 11/18/20 18:31 11/18/20 18:45 Temperature Temperature Source Pulse Rate 72 60 Pulse Rate [Right Radial] Respiratory Rate 15 19 Blood Pressure 141/82 H Blood Pressure [Right Arm] Blood Pressure Mean 102 Blood Pressure Mean [Right Arm] Blood Pressure Source [Right Arm] Blood Pressure Position [Right Arm] 02 Sat by Pulse Oximetry 94 L 95 Oxygen Delivery Method - Lab Data Lab results reviewed: Yes: I reviewed the patient's lab results. Lab Results 11/18/20 17:35: WBC 7.7, RBC 5.56, Hgb 15.5, Hct 47.5, MCV 85.6, MCH 27.8, MCHC 32.5, RDW 13.6, Plt Count 224, MPV 8.4, Neut % (Auto) 45.6, Lymph % (Auto) 46.0, [place] % (Auto) 3.6, Eos % (Auto) 3.8, Baso % (Auto) 1.0, Neut # (Auto) 3.5, Lymph # (Auto) 3.6, [place] # (Auto) 0.3, Eos # (Auto) 0.3, Baso # (Auto) 0.1 11/18/20 17:35: Sodium 140, Potassium 4.2, Chloride 111 H, Carbon Dioxide 24, Anion Gap 9.2, BUN 10, Creatinine 1.00, Estimated Creat Clear 106, Estimated GFR 77, Est GFR ( Amer) 94, Glucose 112 H, Calcium 9.2, Troponin I < 0.01 11/18/20 19:25: Troponin I < 0.01 Result diagrams: 11/18/20 17:35 11/18/20 17:35 Orders (Tests/Meds): ED MEDICATIONS Discontinued Medications Generic Name Dose Route Start Last Admin Trade Name Edd PRN Reason Stop Dose Admin Aspirin 162 mg 11/18/20 19:02 11/18/20 19:11 Aspirin 81mg Chewable Tablet PO 11/18/20 19:03 162 mg ONCE ONE Administration ORDERS Category Date Time Status CXR --portable [XR chest portable] Stat Exams 11/18/20 17:36 Taken Troponin I Q3H Lab 11/18/20 23:45 Ordered - Radiology Data #1 Image(s): Chest Image Reviewed: Yes I reviewed the patient's radiology results, Yes I reviewed the patient's radiology image Preliminary Findings: Normal/NAD - ECG Data Tracing #1 Normal sinus rhythm, 70 bpm, no ST elevation or depression, no ectopy, normal intervals. ECG initial impression date: 11/18/20 ECG initial impression time: 17:38 - LUISITO Score for Non-Stemi Age of Patient: 50-59 years old Heart Rate: 50-69 bpm Systolic Blood Pressure: 140-159 mmHg Serum Creatinine: 0.80-1.19 mg/dl CHF [place] Class: I-No CHF Other Risk Factors: None Non-Stemi Risk Score: 75 Medical Decision Narrative: 55yo M evaluated for chest pain. Differential
[2020-11-18 17:47] LABS: Basophils # 0.1 K/mm3 (0-0.2); Eosinophils # 0.3 K/mm3 (0.0-0.4); Eosinophils % 3.8 % (0.1-12.0); Hematocrit 47.5 % (42.0-52.0); Hemoglobin 15.5 g/dL (14.1-18.0); Lymphocytes # 3.6 K/mm3 (0.7-4.5); Mean Corpuscular HGB Conc 32.5 g/dL (31.8-35.4); Mean Corpuscular Hemoglobin 27.8 pg (27.0-31.2); Mean Corpuscular Volume 85.6 fl (80-94); Mean Platelet Volume 8.4 fl (7.4-10.4); Monocytes # 0.3 K/mm3 (0.1-1.0); Monocytes % 3.6 % (1.7-9.3); Neutrophils # 3.5 K/mm3 (1.8-7.8); Neutrophils % 45.6 % (37.0-80.0); Platelet Count 224 K/mm3 (142-424); Red Blood Count 5.56 M/mm3 (4.60-6.20); Red Cell Distribution Width 13.6 % (11.5-17.5); White Blood Count 7.7 K/mm3 (4.8-10.8)
[2020-11-18 18:56] LABS: Chloride 111 mmol/L (98-107); Potassium 4.2 mmoL/L (3.5-5.1); Sodium 140 mmol/L (136-145)
[2020-11-18 18:59] LABS: Blood Urea Nitrogen 10 mg/dl (9-20); Creatinine Clearance Estimated 106 mL/min (50-200); Estimated Glomerular Filt Rate 77 ml/min (>60); GFR (African American) 94 ML/MIN (>60)
[2020-11-18 19:00] LABS: Anion Gap 9.2 mEq/L (5-15); Calcium 9.2 mg/dl (8.4-10.2); Carbon Dioxide 24 mmol/L (22.0-30.0); Glucose 112 mg/dl (74-100)
[2020-11-18 19:18] LABS: Troponin I < 0.01 ng/ml (0.00-0.034)
[2020-11-18 20:07] LABS: Troponin I < 0.01 ng/ml (0.00-0.034)
== END 2020-11-18 20:33 | disposition home or self-care (01) ==
PROVIDERS: Emergency Provider Family Medicine; PCP Family Medicine
DX: R07.89 Other chest pain (principal); I10 Essential (primary) hypertension; J44.9 Chronic obstructive pulmonary disease, unspecified; F41.8 Other specified anxiety disorders; K21.9 Gastro-esophageal reflux disease without esophagitis; F17.210 Nicotine dependence, cigarettes, uncomplicated; Z79.899 Other long term (current) drug therapy
CPT/HCPCS: 71045; 80048; 84484; 85025; 93005; 99282

== ENCOUNTER → 2020-12-03 12:20 | Outpatient (CLI) | payer OTHER, SELFPAY | PROVIDERS: PCP Family Medicine; Visit Provider Nurse Practitioner Family | DX: G47.30 Sleep apnea, unspecified (principal); R06.83 Snoring | CPT/HCPCS: 95806 ==

== ENCOUNTER → 2021-02-12 08:31 | Outpatient (CLI) | payer OTHER, SELFPAY ==
--- NOTE | 2021-02-12 08:36 | MR_ITS ---
PROCEDURE: MR HEAD/BRAIN WO CON CLINICAL INDICATION: DIZZINESS AND GIDDINESS Lt temporal pain. Headache and dizziness x1.5months. No prior. COMPARISON: No exams were available for comparison TECHNIQUE: Routine multiplanar multi echo sequences are performed without gadolinium enhancement. FINDINGS: No midline shift, mass effect, intracranial hemorrhage, or hydrocephalus is evident. No evidence of acute infarction. No restricted diffusion. The cerebellopontine angles, cerebellum, and brainstem have an unremarkable appearance. There are scattered small T2 white matter hyperintensities the largest of which is in the right frontal parietal junction measuring approximately 7 mm. These do not demonstrate restricted diffusion nor do they have surrounding edema. There located mainly in the frontal and parietal lobes with only a few occipital T2 hyperintensities and no obvious temporal lobe involvement. The corpus callosum is unaffected. No cerebellar lesions are evident. The pituitary, optic chiasm, corpus callosum, and craniocervical junction have an unremarkable appearance. No mastoid effusion or sinus air-fluid level. IMPRESSION: Multifocal T2 white matter hyperintensities as described above. Differential diagnosis would include ischemic gliotic foci from microvascular changes, migraine headache, and demyelinating process. Please correlate with clinical parameters. Follow-up study in 6 months without and with contrast may confirm stability. Otherwise negative MRI of the brain without contrast. Dictated by: Mj Alex MD 02/13/2021 09:05 Mj Alex MD in [place] 02/13/2021 09:05
--- NOTE | 2021-02-12 08:48 | XR_ITS ---
PROCEDURE: XR ORBIT BILATERAL MIN 4V CLINICAL INDICATION: RULE OUT METAL FOREIGN BODY FOR MRI COMPARISON: No exams were available for comparison TECHNIQUE: AP views are obtained of the orbits with the patient looking up and down. FINDINGS: No radio opaque metallic foreign bodies evident. IMPRESSION: No radio opaque orbital metallic foreign body identified. Dictated by: Mj Alex MD 02/12/2021 09:28 Mj Alex MD in [facility] 02/12/2021 09:28
== END ==
PROVIDERS: PCP Family Medicine; Visit Provider Family Medicine
DX: H05.53 Retained (old) foreign body following penetrating wound of bilateral orbits (principal); R42 Dizziness and giddiness
CPT/HCPCS: 70200; 70551

== ENCOUNTER 2021-02-25 03:27 | Emergency (ER) | payer OTHER, SELFPAY ==
[2021-02-25 03:28] VITALS: BP 166/97; PULSE 61; RESP 17; TEMP 36.6; O2SAT 97; BMI 33.7
[2021-02-25 04:00] VITALS: BP 136/69; PULSE 60; RESP 16; O2SAT 97
--- NOTE | 2021-02-25 04:00 | HMH.EDGENADL ---
ED Disposition Clinical Impression: Migraine Disposition: Home, Self-Care Condition on Discharge: Good Instructions: Migraine -- Adult Additional Instructions: Please return with any new or worsening symptoms. Follow-up with neurology and primary care physician. Take Tylenol for symptom control. Referrals: Radames Mcgarry [Primary Care Provider] - - Critical Care Critical Care Time: No Attestation: On 02/25/21, the high probability of a clinically significant, sudden or life threatening deterioration of the following system(s) required my full and direct attention, intervention and personal management. The time I documented below is in addition to time spent performing reported procedures but includes the following listed in this critical care notation. Medical Decision Making - Medical Records Medical records reviewed: Yes: I reviewed the patient's medical records. - Ellis Inquiry Pt receiving controlled substance: No Vital Signs: 02/25/21 03:28 02/25/21 04:00 Temperature 97.9 F Temperature Source Oral Pulse Rate 60 Pulse Rate [Right] 61 Respiratory Rate 17 16 Blood Pressure 136/69 Blood Pressure [Right Arm] 166/97 H Blood Pressure Mean [Right Arm] 120 02 Sat by Pulse Oximetry 97 97 Oxygen Delivery Method Room Air Room Air - Lab Data Lab Results 02/25/21 03:36: WBC 9.1, RBC 5.37, Hgb 14.8, Hct 42.2, MCV 78.7 L, MCH 27.6, MCHC 35.1, RDW 13.5, Plt Count 270, MPV 7.8, Neut % (Auto) 31.3 L, Lymph % (Auto) 59.2 H, [place] % (Auto) 5.3, Eos % (Auto) 3.2, Baso % (Auto) 1.0, Neut # (Auto) 2.9, Lymph # (Auto) 5.4 H, [place] # (Auto) 0.5, Eos # (Auto) 0.3, Baso # (Auto) 0.1 02/25/21 03:36: Sodium 139, Potassium 3.8, Chloride 104, Carbon Dioxide 24, Anion Gap 14.8, BUN 11, Creatinine 1.10, Estimated Creat Clear 101, Estimated GFR 69, Est GFR ( Amer) 84, Glucose 126 H, Calcium 9.0, C-Reactive Protein 2.3 Result diagrams: 02/25/21 03:36 02/25/21 03:36 Orders (Tests/Meds): ED MEDICATIONS Generic Name Dose Route Start Last Admin Trade Name Freq PRN Reason Stop Dose Admin Lactated Ringer's 1,000 mls @ 999 mls/hr 02/25/21 04:00 02/25/21 04:00 Lactated Ringer's 1000 Ml Bag IV 02/25/21 05:00 999 mls/hr .Q1H1M MANAN Administration Discontinued Medications Generic Name Dose Route Start Last Admin Trade Name Freq PRN Reason Stop Dose Admin Diphenhydramine HCl 25 mg 02/25/21 03:56 02/25/21 04:00 Diphenhydramine 50mg/Ml Vial IV 02/25/21 03:57 25 mg ONCE ONE Administration Ketorolac Tromethamine 15 mg 02/25/21 03:56 02/25/21 04:00 Ketorolac 30mg/Ml Vial IV 02/25/21 03:57 15 mg ONCE ONE Administration Prochlorperazine Edisylate 10 mg 02/25/21 03:56 02/25/21 04:00 Prochlorperazine 10mg/2ml Vial IV 02/25/21 03:57 10 mg ONCE ONE Administration ORDERS Category Date Time Status CBC w/Auto Diff [Complete Blood Count Auto Diff] Stat Lab 02/25/21 03:36 Results Erythrocyte Sedimentation Rate Stat Lab 02/25/21 03:36 Results Medical Decision Narrative: The patient is a 55-year-old male who presents to the emergency department today with a headache and dizziness. Differential includes posterior stroke, brain bleed, migraine, temporal arteritis. Patient has had an MRI of his head with the same symptoms which was essentially negative. None of the findings were consistent with posterior stroke or demyelinating pathology in the cerebellum which was a kidney more concerned for an intracranial process. Primarily concern for migraine versus temporal arteritis. Patient is not having vision loss at this point and if it has been going on for 1-1/2 months I would expect more progression of the or temporal arteritis. We will get basic labs CRP, ESR. Migraine cocktail. Inflammatory markers negative. Symptoms resolved after migraine cocktail. Instructed to follow-up with [facility]y for recurrent migraine. Patient to follow-up with PCP. Return precautions giv
[2021-02-25 04:11] LABS: Basophils # 0.1 K/mm3 (0-0.2); Chloride 104 mmol/L (98-107); Eosinophils # 0.3 K/mm3 (0.0-0.4); Eosinophils % 3.2 % (0.1-12.0); Hematocrit 42.2 % (42.0-52.0); Hemoglobin 14.8 g/dL (14.1-18.0); Lymphocytes # 5.4 K/mm3 (0.7-4.5); Lymphocytes % 59.2 % (10-50); Mean Corpuscular HGB Conc 35.1 g/dL (31.8-35.4); Mean Corpuscular Hemoglobin 27.6 pg (27.0-31.2); Mean Corpuscular Volume 78.7 fl (80-94); Mean Platelet Volume 7.8 fl (7.4-10.4); Monocytes # 0.5 K/mm3 (0.1-1.0); Monocytes % 5.3 % (1.7-9.3); Neutrophils # 2.9 K/mm3 (1.8-7.8); Neutrophils % 31.3 % (37.0-80.0); Platelet Count 270 K/mm3 (142-424); Potassium 3.8 mmoL/L (3.5-5.1); Red Blood Count 5.37 M/mm3 (4.60-6.20); Red Cell Distribution Width 13.5 % (11.5-17.5); Sodium 139 mmol/L (136-145); White Blood Count 9.1 K/mm3 (4.8-10.8)
[2021-02-25 04:13] LABS: MANUAL DIFFERENTIAL MANUAL DIFFERENTIAL (MANUAL DIFF)
[2021-02-25 04:14] LABS: Anion Gap 14.8 mEq/L (5-15); Blood Urea Nitrogen 11 mg/dl (9-20); Carbon Dioxide 24 mmol/L (22.0-30.0); Creatinine Clearance Estimated 101 mL/min (50-200); Estimated Glomerular Filt Rate 69 ml/min (>60); GFR (African American) 84 ML/MIN (>60)
[2021-02-25 04:15] LABS: Glucose 126 mg/dl (74-100)
[2021-02-25 04:20] LABS: C-Reactive Protein 2.3 mg/L (0-4)
[2021-02-25 04:28] VITALS: BP 130/67; PULSE 80; RESP 18; TEMP 27.7; O2SAT 98
[2021-02-25 04:38] LABS: Erythrocyte Sedimentation Rate 5 mm/hr (0-20)
[2021-02-25 04:41] LABS: Eosinophils % 5 % (0-3); Lymphocytes % 64 % (10-50); Monocytes % 2 % (2-9); Neutrophils % 29 % (42-76); Platelet Estimate Normal; RBC Morphology Normal; Total Cells Counted 100
== END 2021-02-25 04:30 | disposition home or self-care (01) ==
PROVIDERS: Emergency Provider Emergency Medicine; PCP Family Medicine
DX: G43.909 Migraine, unspecified, not intractable, without status migrainosus (principal); J44.9 Chronic obstructive pulmonary disease, unspecified; K21.9 Gastro-esophageal reflux disease without esophagitis; I10 Essential (primary) hypertension; F17.210 Nicotine dependence, cigarettes, uncomplicated; Z79.899 Other long term (current) drug therapy
CPT/HCPCS: 80048; 85007; 85025; 85651; 86140; 96365; 96375; 99282

== ENCOUNTER → 2021-03-12 19:57 | Outpatient (CLI) | payer OTHER, SELFPAY | PROVIDERS: PCP Family Medicine; Visit Provider Nurse Practitioner Family | DX: G47.30 Sleep apnea, unspecified (principal); R06.83 Snoring; G47.61 Periodic limb movement disorder | CPT/HCPCS: 95810 ==

== ENCOUNTER → 2021-07-16 07:36 | Outpatient (CLI) | payer OTHER, SELFPAY ==
--- NOTE | 2021-07-16 07:44 | CT_ITS ---
PROCEDURE: CT LUNG SCREENING CLINICAL INDICATION: H/O NICOTINE DEPENDENCE COMPARISON: CT CT CHEST W CON from 04/16/[address] ABDOMEN PELVIS W CON from 04/16/2020 TECHNIQUE: The exam was performed on a [employer] Speed [address] scanner using 2.90 mGy CTDI. A low dose helical CT CHEST was performed on a multi-detector scanner. All CT scans at the facility use one or more dose reduction, viz: automated exposure control, ma/kV adjustment per patient size (including targeted exams where dose is matched to indication, i.e. head), or iterative reconstruction technique. The LDCT was performed in a facility that meets the criteria for the screening program. Data regarding this exam was submitted to ACR which is an approved registry. The order for this exam indicates that it came as a result of a lung cancer screening counseling shard decision-making visit that included all the elements required of such a visit including smoking cessation. The radiologist interpreting this exam meets the CMS criteria for the LDCT lung cancer screening program. The exam is reported using the Lung-RADS classification scale and reported to the ACR registry. NOTE: This study was performed for the specific purposes of lung cancer screening and is not an alternative to diagnostic chest CT. RADIATION DOSE: CTDI vol(CT dose Index-volume) = 2.90mG DLP (Dose Length Product) = 108.38 mGcm FINDINGS: COPD with scattered areas of scarring. No suspicious nodules apparent. No mediastinal or hilar mass. OTHER FINDINGS: There are few small mediastinal and axillary lymph nodes. IMPRESSION: Lung-RADS Category 2 Benign Appearance or Behavior Follow-up: Continue annual screening with LDCT in 12 months Dictated by: Mj Alex MD 07/26/2021 05:58 Mj Alex MD in [facility] 07/26/2021 05:58
== END ==
PROVIDERS: PCP Family Medicine; Visit Provider Nurse Practitioner Family
DX: Z87.891 Personal history of nicotine dependence (principal); Z12.2 Encounter for screening for malignant neoplasm of respiratory organs
CPT/HCPCS: 71271

== ENCOUNTER 2021-09-10 12:48 | Emergency (ER) | payer OTHER, SELFPAY ==
[2021-09-10 12:49] VITALS: BP 153/92; PULSE 72; RESP 16; TEMP 36.9; O2SAT 97; BMI 32.3
[2021-09-10 12:57] VITALS: BMI 32.3
--- NOTE | 2021-09-10 12:57 | CT_ITS ---
FINAL REPORT TECHNIQUE: Axial imaging of the head was obtained without contrast. This study was performed with techniques to keep radiation doses as low as reasonably achievable, (ALARA). Individualized dose reduction techniques using automated exposure control or adjustment of mA and/or kV according to the patient''s size were employed. CLINICAL HISTORY: dizziness/headache/vision stroke FINDINGS: The ventricles are normal in size. There is no evidence of hemorrhage. No masses are identified. No extra-axial fluid is seen. The sinuses are normal. There is no acute osseous abnormality. IMPRESSION: No acute intracranial abnormality. Reviewed, Interpreted and Dictated by Dejon Zee MD Transcribed by Diony Wright Authenticated by Dejon Zee MD on 09/10/2021 01:14:[address] [facility]
--- NOTE | 2021-09-10 12:57 | PC.NURSE ---
at bedside and notified rad of stroke protocol
--- NOTE | 2021-09-10 12:58 | ECG_ITS ---
APPROVED REPORT Exam: Resting ECG HR:68 bpm ECG Measurements Heart Rate 68 AXES HI 202 P 72 QRSd 98 QRS 44 QT 402 T 61 QTc 427 Conclusion Normal sinus rhythm Left atrial abnormality Borderline ECG Electronically signed by : Ramo Garcia MD 09/12/2021 14:30:50
--- NOTE | 2021-09-10 13:01 | XR_ITS ---
FINAL REPORT CLINICAL HISTORY: cough FINDINGS: A single view of the chest was obtained. The heart is normal in size. The mediastinum is unremarkable. There is mild scarring at the lung bases. There is no acute pulmonary abnormality. There is no pleural effusion. There is no pneumothorax. There is no acute osseous abnormality. IMPRESSION: No acute cardiopulmonary process. Reviewed, Interpreted and Dictated by Dejon Zee MD Transcribed by Kayla Angulo Authenticated by Dejon Zee MD on 09/10/2021 01:51:[address] [facility]
--- NOTE | 2021-09-10 13:03 | PC.NURSE ---
Pt to rad
--- NOTE | 2021-09-10 13:06 | PC.NURSE ---
pt return from CT
--- NOTE | 2021-09-10 13:23 | HMH.EDGENADL ---
ED Disposition Clinical Impression: BPV (benign positional vertigo) Qualifiers: Laterality: unspecified laterality Qualified Code(s): H81.10 - Benign paroxysmal vertigo, unspecified ear Disposition: Home, Self-Care Condition on Discharge: Good Instructions: DI for Vertigo Prescriptions: Meclizine HCl 25 mg PO BID #20 tab Transmission Status: Pending to [id number] Referrals: Radames Mcgarry [Primary Care Provider] - Shahla Fraser MD [Staff Physician] - - Critical Care Critical Care Time: No Attestation: On 09/10/21, the high probability of a clinically significant, sudden or life threatening deterioration of the following system(s) required my full and direct attention, intervention and personal management. The time I documented below is in addition to time spent performing reported procedures but includes the following listed in this critical care notation. Medical Decision Making - Medical Records Medical records reviewed: Yes: I reviewed the patient's medical records. - Ellis Inquiry Pt receiving controlled substance: No Vital Signs: 09/10/21 12:49 Temperature 98.4 F Temperature Source Oral Pulse Rate [Right] 72 Respiratory Rate 16 Blood Pressure [Right Arm] 153/92 H Blood Pressure Mean [Right Arm] 112 Blood Pressure Source [Right Arm] Automatic Cuff Blood Pressure Position [Right Arm] Sitting 02 Sat by Pulse Oximetry 97 Oxygen Delivery Method Room Air - Lab Data Lab Results 09/10/21 13:11: WBC 8.9, RBC 5.85, Hgb 16.2, Hct 50.0, MCV 85.5, MCH 27.7, MCHC 32.4, RDW 14.2, Plt Count 244, MPV 8.8, Neut % (Auto) 60.9, Lymph % (Auto) 32.7, [place] % (Auto) 3.6, Eos % (Auto) 1.1, Baso % (Auto) 1.6, Neut # (Auto) 5.5, Lymph # (Auto) 2.9, [place] # (Auto) 0.3, Eos # (Auto) 0.1, Baso # (Auto) 0.1 09/10/21 13:11: Sodium 139, Potassium 4.0, Chloride 107, Carbon Dioxide 23, Anion Gap 13.0, BUN 7 L, Creatinine 1.00, Estimated Creat Clear 105, Estimated GFR 77, Est GFR ( Amer) 93, Glucose 152 H, Calcium 9.0, Total Bilirubin 0.4, AST 34, ALT 31, Alkaline Phosphatase 63, Troponin I < 0.01, Total Protein 7.0, Albumin 4.4, Globulin 2.6, Albumin/Globulin Ratio 1.7 Result diagrams: 09/10/21 13:11 09/10/21 13:11 Orders (Tests/Meds): ED MEDICATIONS Discontinued Medications Generic Name Dose Route Start Last Admin Trade Name Freq PRN Reason Stop Dose Admin Meclizine HCl 25 mg 09/10/21 13:02 09/10/21 13:15 Meclizine 25mg Tablet PO 09/10/21 13:03 25 mg ONCE ONE Administration ORDERS Category Date Time Status CT head/brain wo con Stat Cat Scan 09/10/21 12:57 Taken XR chest portable Stat Exams 09/10/21 13:01 Taken Comprehensive Metabolic Panel Stat Lab 09/10/21 13:11 Results TSH [Thyroid Stimulating Hormone] Stat Lab 09/10/21 13:11 Results Trop I [Troponin I] Stat Lab 09/10/21 13:11 Results Troponin I Q3H Lab 09/10/21 16:15 Ordered Troponin I Q3H Lab 09/10/21 19:15 Ordered - Radiology Data #1 Image(s): Chest Image Reviewed: Yes I reviewed the patient's radiology results, Yes I reviewed the patient's radiology image, Yes I have reviewed radiologist's interpretation Preliminary Findings: Normal/NAD - CT Data CT Scan: Head Time Received: 14:[address] Reviewed: Yes: I have reviewed the patient's CT results, I have viewed the radiologist's interpretation Preliminary Findings: Normal/NAD - ECG Data Tracing #1 I reviewed this ECG and interpreted as documented below: Normal ventricular rate of 60 bpm, [place] interval of 202 ms, normal QTC. Sinus rhythm with nonspecific changes. ECG initial impression date: 09/10/21 ECG initial impression time: 12:58 - Reevaluation(s) Time: 14:07 Reevaluation #1: On reevaluation, patient is feeling much better. States that symptoms have resolved dizziness or weakness. I do believe patient symptoms are consistent with positional vertigo. To be discharged with short course of medications. Needs to follow-up with PCP.
[2021-09-10 13:29] LABS: Basophils # 0.1 K/mm3 (0-0.2); Basophils % 1.6 % (0.1-2.0); Eosinophils # 0.1 K/mm3 (0.0-0.4); Eosinophils % 1.1 % (0.1-12.0); Hemoglobin 16.2 g/dL (14.1-18.0); Lymphocytes # 2.9 K/mm3 (0.7-4.5); Lymphocytes % 32.7 % (10-50); Mean Corpuscular HGB Conc 32.4 g/dL (31.8-35.4); Mean Corpuscular Hemoglobin 27.7 pg (27.0-31.2); Mean Corpuscular Volume 85.5 fl (80-94); Mean Platelet Volume 8.8 fl (7.4-10.4); Monocytes # 0.3 K/mm3 (0.1-1.0); Monocytes % 3.6 % (1.7-9.3); Neutrophils # 5.5 K/mm3 (1.8-7.8); Neutrophils % 60.9 % (37.0-80.0); Platelet Count 244 K/mm3 (142-424); Red Blood Count 5.85 M/mm3 (4.60-6.20); Red Cell Distribution Width 14.2 % (11.5-17.5); White Blood Count 8.9 K/mm3 (4.8-10.8)
[2021-09-10 13:30] LABS: Chloride 107 mmol/L (98-107)
[2021-09-10 13:31] LABS: Sodium 139 mmol/L (136-145)
--- NOTE | 2021-09-10 13:31 | PC.NURSE ---
called rad to check on status of CT report, spoke with Brandee who transferred me, no one answered at this time. Nydia in ER at this time, notified her and she advised she would check on status.
[2021-09-10 13:33] LABS: Alanine Aminotransferase 31 U/L (12-78); Aspartate Amino Transferase 34 U/L (17-59); Blood Urea Nitrogen 7 mg/dl (9-20); Creatinine Clearance Estimated 105 mL/min (50-200); Estimated Glomerular Filt Rate 77 ml/min (>60); GFR (African American) 93 ML/MIN (>60)
[2021-09-10 13:34] LABS: Albumin Level 4.4 g/dl (3.5-5.0); Albumin/Globulin Ratio 1.7 (1.1-1.8); Alkaline Phosphatase 63 U/L (38-126); Bilirubin,Total 0.4 mg/dl (0.2-1.3); Carbon Dioxide 23 mmol/L (22.0-30.0); Globulin 2.6 g/dL (1.3-3.2); Glucose 152 mg/dl (74-100)
--- NOTE | 2021-09-10 13:35 | PC.NURSE ---
Nydia located preliminary report. Gave to at this time
[2021-09-10 13:48] LABS: Troponin I < 0.01 ng/ml (0.00-0.034)
[2021-09-10 14:05] LABS: Thyroid Stimulating Hormone 1.31 uIU/mL (0.465-4.68)
[2021-09-10 14:24] VITALS: BP 138/80; PULSE 61; RESP 14; TEMP 36.9; O2SAT 96
== END 2021-09-10 14:26 | disposition home or self-care (01) ==
PROVIDERS: Emergency Provider Emergency Medicine; PCP Family Medicine
DX: H81.10 Benign paroxysmal vertigo, unspecified ear (principal); K21.9 Gastro-esophageal reflux disease without esophagitis; F17.210 Nicotine dependence, cigarettes, uncomplicated
CPT/HCPCS: 70450; 71045; 80053; 84443; 84484; 85025; 93005; 99283

== ENCOUNTER 2021-11-08 04:26 | Emergency (ER) | payer OTHER, SELFPAY ==
--- NOTE | 2021-11-08 04:25 | ECG_ITS ---
APPROVED REPORT Exam: Resting ECG HR:66 bpm ECG Measurements Heart Rate 66 AXES TX 227 P 62 QRSd 107 QRS 48 QT 394 T 55 QTc 408 Conclusion SINUS RHYTHM WITH FIRST DEGREE AV BLOCK ABNORMAL ECG UNCONFIRMED REPORT Electronically signed by : Ramo Garcia MD 11/09/2021 15:33:48
[2021-11-08 04:26] VITALS: BP 168/92; PULSE 69; RESP 18; TEMP 37; O2SAT 97; BMI 35.2
--- NOTE | 2021-11-08 04:27 | XR_ITS ---
PROCEDURE INFORMATION: Exam: XR Chest Exam date and time: 11/08/2021 4:27 AM Age: 56 years old Clinical indication: Sternal or substernal pain; Additional info: Cp TECHNIQUE: Imaging protocol: XR of the chest. Views: 2 views. COMPARISON: CR XR CHEST PORTABLE 11/18/2020 5:42 PM FINDINGS: Tubes, catheters and devices: Surgical clips, RUQ. Lungs: Mild linear atelectasis/fibrosis. No new focal consolidation. Pleural spaces: Unremarkable. No pleural effusion. No pneumothorax. Heart/Mediastinum: Unremarkable. No cardiomegaly. Bones/joints: Mild spondylosis. IMPRESSION: No evidence of an active pulmonary process. Otherwise, as above.
[2021-11-08 04:38] LABS: Basophils # 0.5 K/mm3 (0-0.2); Basophils % 4.9 % (0.1-2.0); Eosinophils # 0.3 K/mm3 (0.0-0.4); Eosinophils % 2.9 % (0.1-12.0); Hematocrit 50.8 % (42.0-52.0); Hemoglobin 16.5 g/dL (14.1-18.0); Lymphocytes # 5.3 K/mm3 (0.7-4.5); Lymphocytes % 53.7 % (10-50); Mean Corpuscular HGB Conc 32.5 g/dL (31.8-35.4); Mean Corpuscular Hemoglobin 27.9 pg (27.0-31.2); Mean Corpuscular Volume 85.9 fl (80-94); Mean Platelet Volume 8.9 fl (7.4-10.4); Monocytes # 0.5 K/mm3 (0.1-1.0); Monocytes % 4.9 % (1.7-9.3); Neutrophils # 3.8 K/mm3 (1.8-7.8); Neutrophils % 38.5 % (37.0-80.0); Platelet Count 257 K/mm3 (142-424); Red Blood Count 5.91 M/mm3 (4.60-6.20); White Blood Count 9.9 K/mm3 (4.8-10.8)
[2021-11-08 04:40] LABS: MANUAL DIFFERENTIAL MANUAL DIFFERENTIAL (MANUAL DIFF)
[2021-11-08 04:49] VITALS: BP 151/86; PULSE 67; RESP 22; O2SAT 94
[2021-11-08 04:49] LABS: Alanine Aminotransferase 35 U/L (12-78); Albumin Level 4.6 g/dl (3.5-5.0); Albumin/Globulin Ratio 1.7 (1.1-1.8); Alkaline Phosphatase 60 U/L (38-126); Anion Gap 13.5 mEq/L (5-15); Aspartate Amino Transferase 37 U/L (17-59); Bilirubin,Total 0.6 mg/dl (0.2-1.3); Blood Urea Nitrogen 12 mg/dl (9-20); Calcium 8.7 mg/dl (8.4-10.2); Carbon Dioxide 27 mmol/L (22.0-30.0); Chloride 103 mmol/L (98-107); Creatinine Clearance Estimated 114 mL/min (50-200); Estimated Glomerular Filt Rate 77 ml/min (>60); GFR (African American) 93 ML/MIN (>60); Globulin 2.7 g/dL (1.3-3.2); Glucose 141 mg/dl (74-100); Potassium 4.5 mmoL/L (3.5-5.1); Sodium 139 mmol/L (136-145); Total Protein,Serum 7.3 g/dl (6.3-8.2)
--- NOTE | 2021-11-08 04:51 | HMH.EDCP ---
ED Disposition Clinical Impression: Atypical chest pain Disposition: Home, Self-Care Condition on Discharge: Good Instructions: DI for Atypical Chest Pain Additional Instructions: see card wednesday for follow up and recheck if needed prior Prescriptions: Isosorbide Mononitrate [Imdur 30mg ER tablet] 30 mg PO DAILY #10 tab Transmission Status: Pending to [id number] Referrals: Radames Mcgarry [Primary Care Provider] - Adam Ny MD [Staff Physician] - - Critical Care Critical Care Time: No Attestation: On 11/08/21, the high probability of a clinically significant, sudden or life threatening deterioration of the following system(s) required my full and direct attention, intervention and personal management. The time I documented below is in addition to time spent performing reported procedures but includes the following listed in this critical care notation. Medical Decision Making - Medical Records Medical records reviewed: Yes: I reviewed the patient's medical records. - Ellis Inquiry Pt receiving controlled substance: No Vital Signs: 11/08/21 04:26 11/08/21 04:49 11/08/21 05:30 Temperature 98.6 F Temperature Source Oral Pulse Rate 67 62 Pulse Rate [Right] 69 Respiratory Rate 18 22 17 Blood Pressure 151/86 H 140/77 Blood Pressure [Right Arm] 168/92 H Blood Pressure Mean [Right Arm] 117 02 Sat by Pulse Oximetry 97 94 L 95 Oxygen Delivery Method Room Air Room Air 11/08/21 06:00 Temperature Temperature Source Pulse Rate 61 Pulse Rate [Right] Respiratory Rate 18 Blood Pressure 143/85 H Blood Pressure [Right Arm] Blood Pressure Mean [Right Arm] 02 Sat by Pulse Oximetry 97 Oxygen Delivery Method - Lab Data Lab results reviewed: Yes: I reviewed the patient's lab results. Lab Results 11/08/21 04:30: WBC 9.9, RBC 5.91, Hgb 16.5, Hct 50.8, MCV 85.9, MCH 27.9, MCHC 32.5, RDW 14.0, Plt Count 257, MPV 8.9, Neut % (Auto) 38.5, Lymph % (Auto) 53.7 H, [place] % (Auto) 4.9, Eos % (Auto) 2.9, Baso % (Auto) 4.9 H, Neut # (Auto) 3.8, Lymph # (Auto) 5.3 H, [place] # (Auto) 0.5, Eos # (Auto) 0.3, Baso # (Auto) 0.5 H, Total Counted 100, Neutrophils % (Manual) 47, Lymphocytes % (Manual) 53 H, Platelet Estimate Normal, RBC Morphology Normal, ESR 1 11/08/21 04:30: Sodium 139, Potassium 4.5, Chloride 103, Carbon Dioxide 27, Anion Gap 13.5, BUN 12, Creatinine 1.00, Estimated Creat Clear 114, Estimated GFR 77, Est GFR ( Amer) 93, Glucose 141 H, Calcium 8.7, Total Bilirubin 0.6, AST 37, ALT 35, Alkaline Phosphatase 60, Troponin I < 0.01, C-Reactive Protein 2.0, Total Protein 7.3, Albumin 4.6, Globulin 2.7, Albumin/Globulin Ratio 1.7, Procalcitonin 0.067 11/08/21 04:30: Amylase 71, Lipase 394 H 11/08/21 06:09: Troponin I < 0.01 11/08/21 06:09: Triglycerides 257 H, Cholesterol 159, LDL Cholesterol Direct 97.59 L, VLDL Cholesterol 51 H, HDL Cholesterol 22 L, Cholesterol/HDL Ratio 7.2 H Result diagrams: 11/08/21 04:30 11/08/21 04:30 Orders (Tests/Meds): ED MEDICATIONS Generic Name Dose Route Start Last Admin Trade Name Freq PRN Reason Stop Dose Admin Sodium Chloride 1,000 mls @ 999 mls/hr 11/08/21 04:30 11/08/21 04:39 Sod Chlor 0.9% 1000ml Bag IV 11/08/21 05:30 999 mls/hr .Q1H1M MANAN Administration Discontinued Medications Generic Name Dose Route Start Last Admin Trade Name Freq PRN Reason Stop Dose Admin Aspirin 81 mg 11/08/21 04:29 11/08/21 04:46 Aspirin 81mg Chewable Tablet PO 11/08/21 04:30 81 mg ONCE ONE Administration Nitroglycerin 0.4 mg 11/08/21 04:29 11/08/21 04:46 Nitroglycerin 0.4mg Sl Tablet SL 11/08/21 04:30 0.4 mg ONCE ONE Administration Nitroglycerin 1 gm 11/08/21 04:56 11/08/21 04:58 Nitroglycerin 1 Gm Ointment TD 11/08/21 04:57 1 gm ONCE ONE Administration ORDERS Category Date Time Status Troponin I Q3H Lab 11/08/21 10:30 Ordered - Radiology Data #1 Image(s): Chest Image Reviewed: Yes
[2021-11-08 04:53] LABS: Lymphocytes % 53 % (10-50); Neutrophils % 47 % (42-76); Platelet Estimate Normal; RBC Morphology Normal; Total Cells Counted 100
[2021-11-08 05:06] LABS: Troponin I < 0.01 ng/ml (0.00-0.034)
[2021-11-08 05:08] LABS: Procalcitonin 0.067 ng/mL (0.0-2.0)
[2021-11-08 05:30] VITALS: BP 140/77; PULSE 62; RESP 17; O2SAT 95
[2021-11-08 05:36] LABS: Erythrocyte Sedimentation Rate 1 mm/hr (0-20)
[2021-11-08 05:45] LABS: Amylase 71 U/L (30-110); Lipase 394 U/L (23-300)
--- NOTE | 2021-11-08 05:47 | PC.NURSE ---
sagar on phone with dr gibson @ this time
[2021-11-08 06:00] VITALS: BP 143/85; PULSE 61; RESP 18; O2SAT 97
[2021-11-08 06:24] LABS: Chol/HDL Ratio 7.2 (1-3.5); Cholesterol 159 mg/dl (140-200); HDL Cholesterol 22 mg/dl (40-60); Triglycerides 257 mg/dl (30-150); VLDL Cholesterol 51 mg/dL (0-40)
[2021-11-08 06:35] LABS: Direct LDL Cholesterol 97.59 mg/dL (100-129)
[2021-11-08 06:40] LABS: Troponin I < 0.01 ng/ml (0.00-0.034)
[2021-11-08 07:15] VITALS: BP 140/80; PULSE 60; RESP 20; TEMP 36.8; O2SAT 99
== END 2021-11-08 07:37 | disposition home or self-care (01) ==
PROVIDERS: Emergency Provider Emergency Medicine; PCP Family Medicine
DX: R07.89 Other chest pain (principal); R10.13 Epigastric pain; I10 Essential (primary) hypertension; I25.10 Atherosclerotic heart disease of native coronary artery without angina pectoris; K21.9 Gastro-esophageal reflux disease without esophagitis; E78.5 Hyperlipidemia, unspecified; M19.90 Unspecified osteoarthritis, unspecified site; G43.909 Migraine, unspecified, not intractable, without status migrainosus; J44.9 Chronic obstructive pulmonary disease, unspecified; F17.210 Nicotine dependence, cigarettes, uncomplicated; Z79.51 Long term (current) use of inhaled steroids; Z79.82 Long term (current) use of aspirin; Z79.899 Other long term (current) drug therapy; Z88.5 Allergy status to narcotic agent; Z88.6 Allergy status to analgesic agent; Z88.8 Allergy status to other drugs, medicaments and biological substances; Z82.49 Family history of ischemic heart disease and other diseases of the circulatory system; Z83.3 Family history of diabetes mellitus
CPT/HCPCS: 71046; 80053; 80061; 82150; 83690; 84145; 84484; 85007; 85025; 85651; 86140; 93005; 96361; 96365; 99285

== ENCOUNTER 2022-03-22 22:20 | Emergency (ER) | payer OTHER, SELFPAY ==
[2022-03-22 22:22] VITALS: BP 140/76; PULSE 69; RESP 16; TEMP 36.8; O2SAT 97; BMI 33.5
--- NOTE | 2022-03-22 22:44 | CT_ITS ---
PROCEDURE INFORMATION: Exam: CT Abdomen And Pelvis Without Contrast Exam date and time: 03/22/2022 10:44 PM Age: 56 years old Clinical indication: Abdominal pain; Localized; Right lower quadrant (rlq); Prior surgery; Surgery date: 6+ months; Surgery type: Gb and appendix; Additional info: Stone protocol TECHNIQUE: Imaging protocol: Computed tomography of the abdomen and pelvis without contrast. Radiation optimization: All CT scans at this facility use at least one of these dose optimization techniques: automated exposure control; mA and/or kV adjustment per patient size (includes targeted exams where dose is matched to clinical indication); or iterative reconstruction. COMPARISON: CT ABDOMEN PELVIS W CON 04/16/2020 12:58 PM FINDINGS: Lungs: Mild scarring and atelectasis in the lower lungs. Liver: Hepatic steatosis. Gallbladder and bile ducts: Gallbladder is absent. Pancreas: Normal. No ductal dilation. Spleen: Normal. No splenomegaly. Adrenal glands: Normal. No mass. Kidneys and ureters: Low attenuation renal lesions measuring up to 1.5 cm in diameter are incompletely characterized, but are unchanged and likely cysts. No followup imaging is warranted. Stomach and bowel: Unremarkable. No obstruction. No mucosal thickening. Appendix: Appendix is absent. Intraperitoneal space: Unremarkable. No free air. No significant fluid collection. Vasculature: The arteries demonstrate mild atherosclerotic disease. Lymph nodes: Unremarkable. No enlarged lymph nodes. Urinary bladder: Limited evaluation of the urinary bladder due to low urine volume. Reproductive: Unremarkable as visualized. Bones/joints: Unremarkable. No acute fracture. Soft tissues: Tiny fat containing umbilical hernia. Other findings: Stigmata of old granulomatous disease. IMPRESSION: 1. Limited evaluation of the urinary bladder due to low urine volume. Please exclude infection clinically. Otherwise, no acute findings. 2. Hepatic steatosis. COMMENTS: Consistent with the [place] [employer]'s Incidental Findings Committee white paper (J Am Mere Radiol 2018): Any incidental renal lesion less than 1 cm or classified as too small to characterize, or any incidental cystic renal lesion characterized as simple-appearing, is likely benign. No follow-up imaging is recommended for these lesions per consensus recommendations based on imaging criteria.
--- NOTE | 2022-03-22 22:57 | PC.NURSE ---
Pt gone to RAD for CT
[2022-03-22 23:02] LABS: Microscopic, Urine URINE MICROSCOPIC (MICROSCOPIC)
[2022-03-22 23:03] LABS: Basophils # 0.1 K/mm3 (0-0.2); Eosinophils # 0.4 K/mm3 (0.0-0.4); Eosinophils % 3.7 % (0.1-12.0); Hematocrit 45.3 % (42.0-52.0); Hemoglobin 15.3 g/dL (14.1-18.0); Lymphocytes # 4.5 K/mm3 (0.7-4.5); Lymphocytes % 46.3 % (10-50); Mean Corpuscular HGB Conc 33.8 g/dL (31.8-35.4); Mean Corpuscular Hemoglobin 27.9 pg (27.0-31.2); Mean Corpuscular Volume 82.7 fl (80-94); Mean Platelet Volume 8.9 fl (7.4-10.4); Monocytes # 0.4 K/mm3 (0.1-1.0); Monocytes % 4.1 % (1.7-9.3); Neutrophils # 4.3 K/mm3 (1.8-7.8); Neutrophils % 44.9 % (37.0-80.0); Platelet Count 216 K/mm3 (142-424); Red Blood Count 5.48 M/mm3 (4.60-6.20); Red Cell Distribution Width 13.1 % (11.5-17.5); White Blood Count 9.6 K/mm3 (4.8-10.8)
--- NOTE | 2022-03-22 23:03 | PC.NURSE ---
Pt back from RAD
[2022-03-22 23:04] LABS: Appearance,Urine CLEAR (Clear); Bilirubin,Urine Negative (Negative); Blood, Urine Negative (Negative); Color,Urine YELLOW (Yellow); Glucose,Urine (UA) Negative (Negative); Ketones,Urine Negative (Negative); Leukocyte Esterase,Urine Negative (Negative); Nitrate,Urine Negative (Negative); PH,Urine 7.5 (5.0-8.5); Protein,Urine Negative (Negative); Urobilinogen,Urine 0.2 EU/dl (0.2)
[2022-03-22 23:12] VITALS: BP 136/74; PULSE 69; O2SAT 98
[2022-03-22 23:12] LABS: Chloride 110 mmol/L (98-107); Sodium 139 mmol/L (136-145)
[2022-03-22 23:13] LABS: WBC,Urine Occasional #/hpf (0-3)
[2022-03-22 23:14] LABS: Alanine Aminotransferase 30 U/L (12-78); Aspartate Amino Transferase 53 U/L (17-59); Bilirubin,Total 0.9 mg/dl (0.2-1.3); Blood Urea Nitrogen 12 mg/dl (9-20); Creatinine Clearance Estimated 109 mL/min (50-200); Estimated Glomerular Filt Rate 77 ml/min (>60); GFR (African American) 93 ML/MIN (>60)
[2022-03-22 23:15] LABS: Albumin Level 4.4 g/dl (3.5-5.0); Albumin/Globulin Ratio 1.6 (1.1-1.8); Alkaline Phosphatase 57 U/L (38-126); Anion Gap 11.3 mEq/L (5-15); Calcium 8.9 mg/dl (8.4-10.2); Carbon Dioxide 22 mmol/L (22.0-30.0); Globulin 2.8 g/dL (1.3-3.2); Glucose 113 mg/dl (74-100); Total Protein,Serum 7.2 g/dl (6.3-8.2)
[2022-03-22 23:20] LABS: C-Reactive Protein 3.1 mg/L (0-4); Potassium 4.3 mmoL/L (3.5-5.1)
[2022-03-22 23:30] VITALS: BP 123/74; PULSE 71; O2SAT 96
[2022-03-22 23:38] LABS: Erythrocyte Sedimentation Rate 7 mm/hr (0-20)
--- NOTE | 2022-03-22 23:44 | HMH.EDNVD ---
ED Disposition Clinical Impression: Flank pain, acute Disposition: Home, Self-Care Condition on Discharge: Good Instructions: DI for Acute Abdominal Pain Additional Instructions: use meds and see pcp for follow up and urine culture results Prescriptions: levoFLOXacin [Levaquin 500mg tab] 500 mg PO DAILY #7 tab Transmission Status: Pending to [id number] Referrals: Radames Mcgarry [Primary Care Provider] - - Critical Care Critical Care Time: No Attestation: On 03/22/22, the high probability of a clinically significant, sudden or life threatening deterioration of the following system(s) required my full and direct attention, intervention and personal management. The time I documented below is in addition to time spent performing reported procedures but includes the following listed in this critical care notation. Medical Decision Making - Medical Records Medical records reviewed: Yes: I reviewed the patient's medical records. - Ellis Inquiry Pt receiving controlled substance: No Vital Signs: 03/22/22 22:22 Temperature 98.3 F Temperature Source Oral Pulse Rate [Left Radial] 69 Respiratory Rate 16 Blood Pressure [Right Arm] 140/76 Blood Pressure Mean [Right Arm] 97 Blood Pressure Source [Right Arm] Automatic Cuff Blood Pressure Position [Right Arm] Sitting 02 Sat by Pulse Oximetry 97 Oxygen Delivery Method Room Air - Lab Data Lab results reviewed: Yes: I reviewed the patient's lab results. Lab Results 03/22/22 22:55: Urine Color Yellow, Urine Appearance Clear, Urine pH 7.5, Ur Specific [place] 1.010, Urine Protein Negative, Urine Glucose (UA) Negative, Urine Ketones Negative, Urine Blood Negative, Urine Nitrate Negative, Urine Bilirubin Negative, Urine Urobilinogen 0.2, Ur Leukocyte Esterase Negative, Urine WBC Occasional 03/22/22 22:55: WBC 9.6, RBC 5.48, Hgb 15.3, Hct 45.3, MCV 82.7, MCH 27.9, MCHC 33.8, RDW 13.1, Plt Count 216, MPV 8.9, Neut % (Auto) 44.9, Lymph % (Auto) 46.3, [place] % (Auto) 4.1, Eos % (Auto) 3.7, Baso % (Auto) 1.0, Neut # (Auto) 4.3, Lymph # (Auto) 4.5, [place] # (Auto) 0.4, Eos # (Auto) 0.4, Baso # (Auto) 0.1, ESR 7 03/22/22 22:55: Sodium 139, Potassium 4.3, Chloride 110 H, Carbon Dioxide 22, Anion Gap 11.3, BUN 12, Creatinine 1.00, Estimated Creat Clear 109, Estimated GFR 77, Est GFR ( Amer) 93, Glucose 113 H, Calcium 8.9, Total Bilirubin 0.9, AST 53, ALT 30, Alkaline Phosphatase 57, C-Reactive Protein 3.1, Total Protein 7.2, Albumin 4.4, Globulin 2.8, Albumin/Globulin Ratio 1.6 Result diagrams: 03/22/22 22:55 03/22/22 22:55 Orders (Tests/Meds): ED MEDICATIONS Generic Name Dose Route Start Last Admin Trade Name Freq PRN Reason Stop Dose Admin Sodium Chloride 1,000 mls @ 999 mls/hr 03/22/22 22:45 03/22/22 23:16 Sod Chlor 0.9% 1000ml Bag IV 03/22/22 23:45 999 mls/hr .Q1H1M MANAN Administration Discontinued Medications Generic Name Dose Route Start Last Admin Trade Name Freq PRN Reason Stop Dose Admin Ketorolac Tromethamine 15 mg 03/22/22 22:45 03/22/22 23:15 Ketorolac 30mg/Ml Vial IV 03/22/22 22:46 15 mg ONCE ONE Administration Ondansetron HCl 4 mg 03/22/22 22:45 03/22/22 23:15 Ondansetron 4mg/2ml Vial IV 03/22/22 22:46 4 mg ONCE ONE Administration ORDERS Category Date Time Status Urine Culture Stat Micro 03/22/22 22:55 Received - CT Data CT Scan: Abdomen, Pelvis Time Received: 00:[address] Reviewed: Yes: I have viewed the radiologist's interpretation Preliminary Findings: Normal/NAD Medical Decision Narrative: pt with reported abn urine and stable exam and labs will treat as prostate Nausea/Vomiting/Diarrhea HPI - General Chief complaint: Abdominal Pain Stated complaint: pain lower right side and back Time Seen by Provider: 03/22/22 23:44 Mode of Arrival: Ambulatory Source of Information: Patient, Spouse, Medical Record Limitations: No Limitations Description of Symptoms (Recalled from ER
[2022-03-23 00:01] VITALS: BP 130/74; PULSE 64; O2SAT 98
--- NOTE | 2022-03-23 00:12 | PC.NURSE ---
Called registration to page Dr Garcia at this time
--- NOTE | 2022-03-23 00:12 | PC.NURSE ---
Notified radiology to burn a disc at this time
[2022-03-23 00:23] VITALS: BP 130/74; PULSE 88; RESP 16; TEMP 36.8; O2SAT 97
== END 2022-03-23 00:26 | disposition home or self-care (01) ==
PROVIDERS: Emergency Provider Emergency Medicine; PCP Family Medicine
DX: M54.9 Dorsalgia, unspecified (principal); R10.9 Unspecified abdominal pain; Z88.6 Allergy status to analgesic agent; Z88.8 Allergy status to other drugs, medicaments and biological substances; J44.9 Chronic obstructive pulmonary disease, unspecified; I25.10 Atherosclerotic heart disease of native coronary artery without angina pectoris; K21.9 Gastro-esophageal reflux disease without esophagitis; E78.5 Hyperlipidemia, unspecified; I10 Essential (primary) hypertension; G43.909 Migraine, unspecified, not intractable, without status migrainosus; Z72.0 Tobacco use; Z90.49 Acquired absence of other specified parts of digestive tract
CPT/HCPCS: 74176; 80053; 81001; 85025; 85651; 86140; 87086; 96365; 96375; 99284; J2405